=== PATIENT | male | born 1985 | race Caucasian/White ===

== ENCOUNTER 2016-05-25 17:21 | Emergency (ER) | payer OTHER ==
[~2016-05-25] VITALS: Ht 172.7 cm; Wt 123.0 kg
[~2016-05-25 17:21] MED LIST: GABA300C19 PO; NORT75CA PO; ZNT/150 PO
[2016-05-25 17:37] VITALS: BP 156/84; TEMP 37.2; Ht 172.7 cm; Wt 123.0 kg
[2016-05-25] MEDS ORDERED: ALBUT/IPRATROP 3MG/0.5MG NEB 3 ML VIAL INH STA (18:20)
--- NOTE | 2016-05-25 18:55 | DIAGNOSTIC IMAGING REPORT ---
CHEST ONE VIEW PORTABLE CLINICAL HISTORY: cough dyspnea COMPARISON STUDY: No previous studies for comparison. FINDINGS: The bones soft tissues and hemidiaphragms are normal. The cardiomediastinal silhouette is normal. The lungs are clear. The pulmonary vasculature is normal. IMPRESSION: Negative chest. Electronically signed by: Satnam Perez M.D. 05/25/2016 6:54 PM Dictated Date/Time: 05/25/2016 6:54 PM
[2016-05-25] MEDS ORDERED: PRED20TA PO (19:45)
[2016-05-25] MEDS ORDERED: ALBUTEROL HFA 8 GM INHALER INH ONE (19:45)
--- NOTE | 2016-05-25 19:45 | EMERGENCY ROOM VISIT NOTE ---
History Report prepared by Nina: Anjum Lema Under the Supervision of: Dr. Ilia Parra D.O. First contact with patient: 18:17 Chief Complaint: RESPIRATORY PROBLEMS Stated Complaint: TROUBLE BREATHING,FEVER,COLD,COUGH,DIZZY History of Present Illness The patient is a 30 year old male with a history of asthma who presents to the Emergency Room with complaints of a persistent cough beginning two days prior to arrival. He currently rates his discomfort as a 4/10 in severity. The patient associates hot and cold flashes, difficulty breathing, dizziness, nausea , vomiting, and body aches. He notes his cough is productive with clear sputum. The patient states he had two episodes of vomiting prior to arrival. He notes he used an inhaler this morning. 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 A total of 10 systems reviewed and were otherwise negative. Past Medical & Surgical Medical Problems: (1) Arthritis (2) Asthma (3) Chronic back pain (4) fibromyalgia Family History No pertinent family history Social History Smoking Status: Former Smoker Drug Use: none Marital Status: in relationship Housing Status: lives with significant other Occupation Status: employed Current/Historical Medications Scheduled Gabapentin (Neurontin), 300 MG PO TID Nortriptyline Hcl (Pamelor), 75 MG PO DAILY Prednisone (Prednisone), 2 TAB PO DAILY Ranitidine Hcl (Zantac), 150 MG PO BID Allergies Coded Allergies: Penicillins (Verified Allergy, Unknown, 05/25/16) ALLERGY LISTED ANTIBIOTICS Red Dye (Verified Allergy, Unknown, VARIOUS, 05/25/16) Uncoded Allergies: "MOST ANTIBIOTICS" (Allergy, Unknown, NOT SPECIFIED, 11/29/14) ARTIFICIAL RASPBERRY (Allergy, Unknown, NOT SPECIFIED, 11/29/14) Physical Exam Vital Signs Date Time Temp Pulse Resp B/P Pulse Ox O2 Delivery O2 Flow Rate FiO2 05/25/16 18:35 113 05/25/16 18:34 Room Air 05/25/16 17:39 Room Air 05/25/16 17:37 37.2 110 20 156/84 95 Room Air Physical Exam CONSTITUTIONAL/VITAL SIGNS: Reviewed / noted above. GENERAL: Non-toxic in appearance. INTEGUMENTARY: Warm, dry, and [place]. HEAD: Normocephalic. EYES: without scleral icterus or trauma. ENT/OROPHARYNX: clear and moist. LYMPHADENOPATHY/NECK: Is supple without lymphadenopathy or meningismus. RESPIRATORY: Scattered expiratory wheezing. Occasional cough. CARDIOVASCULAR: Regular rate and rhythm. GI/ABDOMEN: Soft and nontender. No organomegaly or pulsatile mass. No rebound or guarding. Normal bowel sounds. EXTREMITIES: Warm and well perfused. BACK: No CVA tenderness. NEUROLOGICAL: Intact without focal deficits. PSYCHIATRIC: normal affect. MUSCULOSKELETAL: Normally developed with good muscle tone. Medical Decision & Procedures ER Provider Diagnostic Interpretation: X ray results and stated below per my interpretation and radiology interpretation. CHEST ONE VIEW PORTABLE CLINICAL HISTORY: cough dyspnea COMPARISON STUDY: No previous studies for comparison. FINDINGS: The bones soft tissues and hemidiaphragms are normal. The cardiomediastinal silhouette is normal. The lungs are clear. The pulmonary vasculature is normal. IMPRESSION: Negative chest. Electronically signed by: Satnam Perez M.D. 05/25/2016 6:54 PM Medications Administered Medications (Trade) Dose Ordered Sig/Moshe Route Start Time Stop Time Status Last Admin Dose Admin Albuterol/ Ipratropium (Duoneb) 3 ml NOW STAT INH 05/25/16 18:20 05/25/16 18:22 DC 05/25/16 18:33 3 ML Prednisone (PredniSONE TAB) 60 mg NOW STAT PO 05/25/16 18:20 05/25/16 18:22 DC 05/25/16 18:33 60 MG ED Course 1817: Previous medical records were reviewed. The patient was evaluated in room B2. A complete history and physical examination was performed. 1819: Ordered Prednisone 60 mg PO, Duoneb 3 ml INH. 1944: Ordered Albuterol 2 puffs INH. 1999: On reevaluation, the patient is doing well. I discussed the results and findings with the patient. He verbalized agreement of the treatment plan. The patient was discharged home. Medical Decision The differential was considered includes acute myocardial infarction, acute coronary syndrome, myocarditis, pericarditis, pericardial effusions /tamponad, esophageal perforation, pulmonary embolism, pneumonia, pneumothorax, cardiomyopathy, congestive heart, anemia , COPD/asthma exacerbation. This is a 30-year-old male who presents to the ED with a chief complaint of a cough for the past 2 days. He is also had some hot and cold symptoms. Today he coughed to the point where he vomited twice. He has a history of asthma. He denies any other significant symptoms. He has been using his inhaler. The patient's exam reveals normal vital signs and he is afebrile. He has expiratory wheezes on exam. DuoNeb treatment improved his symptoms significant only. He was also given prednisone by mouth. The patient was discharged on prednisone. He will use albuterol inhaler was provided. Chest x-ray did not show acute disease. He is felt to be stable for discharge. Impression Primary Impression: Bronchitis Scribe Attestation The scribe's documentation has been prepared under my direction and personally reviewed by me in its entirety. I confirm that the note above accurately reflects all work, treatment, procedures, and medical decision making performed by me. Departure Information Dispostion Home / Self-Care Prescriptions Prednisone (Prednisone) 20 Mg Tab 2 TAB PO DAILY for 4 Days, #8 TAB Prov: Ilia Parra D.O. 05/25/16 Referrals Dhaval Burrows III, CRNP (PCP) Forms HOME CARE DOCUMENTATION FORM, IMPORTANT VISIT INFORMATION, WORK / SCHOOL INSTRUCTIONS Patient Instructions Bronchitis Acute, My [facility] Additional Instructions Follow-up with your doctor for further care and evaluation in 1-2 days. Return to the emergency department for worsening or new symptoms or any concerns. You have been examined and treated today on an emergency basis only. This is not a substitute for, or an effort to provide, complete comprehensive medical care. It is impossible to recognize and treat all injuries or illnesses in a single emergency department visit. It is therefore important that you follow up closely with your doctor. Call as soon as possible for an appointment. Prednisone as prescribed. Albuterol inhaler, 2 puffs every 2-4 hours as needed for wheezing and cough.
[2016-05-25 20:12] VITALS: PULSE 103; O2SAT 93
== END 2016-05-25 20:40 | disposition home or self-care (01) ==
LOC: C.EDB 17:23
DX: J40 Bronchitis, not specified as acute or chronic (principal); J45.909 Unspecified asthma, uncomplicated; G89.29 Other chronic pain; Z87.891 Personal history of nicotine dependence

== ENCOUNTER → 2016-05-30 | Outpatient (CLI) | payer OTHER ==
[~2016-05-30] MED LIST changes: +PRED20TA PO
[2016-05-30 13:55] LABS: BLOOD UREA NITROGEN 17 mg/dl (7-18); BUN/CREATININE RATIO 17.6 (10-20); CARBON DIOXIDE 26 mmol/L (21-32); CHLORIDE 105 mmol/L (98-107); CREATININE 0.96 mg/dl (0.60-1.40); GLUCOSE 95 mg/dl (70-99); POTASSIUM 3.7 mmol/L (3.5-5.1); SODIUM 141 mmol/L (136-145)
[2016-05-30 13:58] LABS: CHOLESTEROL 146 mg/dl (0-200); CHOLESTEROL/HDL RATIO 3.2; HDL CHOLESTEROL 46 mg/dl; LDL CHOLESTEROL CALCULATED 78 mg/dl; TRIGLYCERIDES 112 mg/dl (0-150); VERY LOW DENSITY LIPOPROT CALC 22 mg/dl
== END | disposition home or self-care (01) ==
LOC: C.LAB 12:40
PROVIDERS: ATTEND Family Medicine
DX: E78.1 Pure hyperglyceridemia (principal); M79.7 Fibromyalgia

== ENCOUNTER 2017-06-01 10:38 | Emergency (ER) | payer OTHER ==
[~2017-06-01] VITALS: Ht 172.7 cm; Wt 133.6 kg
[~2017-06-01 10:38] MED LIST changes: +GABA-1218 PO; -GABA300C19 PO; -PRED20TA PO
[2017-06-01 10:49] VITALS: TEMP 37.4; Ht 172.7 cm; Wt 133.6 kg
[2017-06-01] MEDS ORDERED: MoRPHine SULFATE 4 MG/ML 1 ML CARP\\VIAL IV STA (10:59)
[2017-06-01] MEDS ORDERED: SODIUM CHLORIDE 0.9% 1000ML 2,000 ML IV STA (10:59)
[2017-06-01] MEDS ORDERED: ONDANSETRON INJ 2 MG/ML 2 ML VIAL IV STA (10:59)
[2017-06-01] MEDS ORDERED: OPTIRAY 320 IV PRN (11:15)
[2017-06-01 11:25] LABS: BASO % 0.1 %; BASO ABS # 0.02 K/uL (0-0.2); EOS % 0.9 %; EOS ABS # 0.14 K/uL (0-0.5); HEMATOCRIT 45.8 % (42-52); HEMOGLOBIN 16.5 g/dL (14.0-18.0); IG# 0.03 K/uL (0.00-0.02); LYMPH % 4.6 %; LYMPH ABS # 0.69 K/uL (1.2-3.4); MEAN CELL VOLUME 85.3 fL (80-100); MEAN CORPUSCULAR HEMOGLOBIN 30.7 pg (25-34); MEAN PLATELET VOLUME 11.1 fL (7.4-10.4); MONO % 3.1 %; MONO ABS # 0.47 K/uL (0.11-0.59); NEUT % 91.1 %; NEUT ABS # 13.66 K/uL (1.4-6.5); PLATELET COUNT 194 K/uL (130-400); RED CELL DISTRIBUTION WIDTH CV 13.5 % (11.5-14.5); RED CELL DISTRIBUTION WIDTH SD 41.9 fL (36.4-46.3); WHITE BLOOD COUNT 15.01 K/uL (4.8-10.8)
[2017-06-01 11:39] LABS: CALCIUM 9.2 mg/dl (8.5-10.1); CREATININE 1.12 mg/dl (0.60-1.40); POTASSIUM 4.7 mmol/L (3.5-5.1)
[2017-06-01 11:42] LABS: TOTAL PROTEIN 7.7 gm/dl (6.4-8.2)
--- NOTE | 2017-06-01 12:18 | DIAGNOSTIC IMAGING REPORT ---
ABD/PELVIS IV CONTRAST ONLY CLINICAL HISTORY: 31 years-old Male presenting with abd pain, vomiting, weakness, lower abdominal pain. TECHNIQUE: Multidetector CT of the abdomen and pelvis was performed after the administration of intravenous contrast. IV contrast: 93 mL of Optiray 320. A dose lowering technique was used consistent with the principles of ALARA (as low as reasonably achievable). COMPARISON: None. CT DOSE (mGy.cm): The estimated cumulative dose is 1786.17 mGy.cm. 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 Lung bases: Minimal basilar opacities, likely atelectasis. Solid peripheral 4 mm nodule in the right middle lobe (series 3 image 19). Solid peripheral 5 mm nodule in the posterior basal right lower lobe (series 3 image 19). Normal heart size. No pericardial or pleural effusion. Liver: Normal morphology. Suspected hepatic steatosis. No focal lesion. Patent hepatic vasculature. Biliary: No intrahepatic or extrahepatic biliary ductal dilatation. Normal gallbladder. Pancreas: Mild parenchymal atrophy. Spleen: Normal. Adrenal glands: Normal. Kidneys and ureters: Normal. No hydronephrosis. Bladder: Normal. Pelvic organs: Prostate and seminal vesicles normal. Bowel: Normal appendix. No bowel obstruction. Appendicolith noted. Peritoneal cavity: No free fluid or intraperitoneal gas. Lymph nodes: No enlarged lymph nodes in the abdomen or pelvis. Vasculature: Aorta and IVC patent and normal in caliber. Abdominal wall: Normal. Musculoskeletal: Normal. IMPRESSION: 1. No acute intra-abdominal pathology. 2. Suspected hepatic steatosis. Correlate with liver function tests to exclude steatohepatitis as a cause for abdominal pain. 3. 2 solid pulmonary nodules in the right lung, the largest measuring 5 mm. Phillip Society 2017 recommendations do not apply to patients abdomen 35. Follow-up as likely warranted. Electronically signed by: Sedrick Saldaña M.D. 06/01/2017 12:16 PM Dictated Date/Time: 06/01/2017 12:11 PM
[2017-06-01] MEDS ORDERED: ONDA4TAB65 PO (12:25)
[2017-06-01 13:15] VITALS: BP 193/100; PULSE 114; O2SAT 100
--- NOTE | 2017-06-01 16:58 | EMERGENCY ROOM VISIT NOTE ---
History Report prepared by Gemaibsandra: Rena Triana Under the Supervision of: Dr. Valeriy Oconnell D.O. First contact with patient: 10:51 Chief Complaint: ILLNESS Stated Complaint: THROWING UP, WEAK, DIZZY, STOMACH PAIN History of Present Illness The patient is a 31 year old male who presents to the Emergency Room with complaints of constant generalized illness beginning at 6 am this morning. The patient reports vomiting, abdominal cramping, and generalized weakness. He reports the abdominal pain is fairly mild in nature. No exacerbating or remitting factors. No recent travel, drinking from streams, backpacking or hiking. No urinary symptoms. He denies any worsening or modifying factors for his abdominal pain. He denies any recent sick contact. The patient's last bowel movement was this morning which he reports was loose. He denies any history of abdominal surgeries. Pt denies headache, change in vision, fevers, chest pain, shortness of breath, nausea, pain with urination, and melena. Source of History: patient Onset: this morning at 6 am Position: other (generalized) Quality: other (illness) Modifying Factors (Worsening): other (none) Modifying Factors (Relieving): other (none) Associated Symptoms: + vomiting, + abdominal pain, + diarrhea, No chest pain , No SOB, No urinary symptoms Review of Systems See HPI for pertinent positives & negatives. A total of 10 systems reviewed and were otherwise negative. Past Medical & Surgical Medical Problems: (1) Arthritis (2) Asthma (3) Chronic back pain (4) fibromyalgia Family History No pertinent family history Social History Smoking Status: Never Smoker Drug Use: none Marital Status: in relationship Housing Status: lives with significant other Occupation Status: employed Current/Historical Medications Scheduled Gabapentin (Neurontin), 300 MG PO TID Nortriptyline Hcl (Pamelor), 75 MG PO DAILY Ranitidine Hcl (Zantac), 150 MG PO BID Scheduled PRN Ondansetron Hcl (Zofran), 1 TAB PO Q6H PRN for Nausea Allergies Coded Allergies: Penicillins (Verified Allergy, Unknown, 05/25/16) ALLERGY LISTED ANTIBIOTICS Red Dye (Verified Allergy, Unknown, VARIOUS, 05/25/16) Uncoded Allergies: "MOST ANTIBIOTICS" (Allergy, Unknown, NOT SPECIFIED, 11/29/14) ARTIFICIAL RASPBERRY (Allergy, Unknown, NOT SPECIFIED, 11/29/14) Physical Exam Vital Signs Date Time Temp Pulse Resp B/P (MAP) Pulse Ox O2 Delivery O2 Flow Rate FiO2 06/01/17 13:15 114 16 193/100 100 06/01/17 12:19 108 16 169/96 96 Room Air 06/01/17 10:49 37.4 113 20 155/97 97 Room Air Physical Exam GENERAL: Sitting up in bed, alert, disheveled appearing, well nourished, no distress, non-toxic EYE EXAM: normal conjunctiva. OROPHARYNX: no exudate, no erythema, lips, buccal mucosa, and tongue normal and mucous membranes are dry. NECK: supple, no nuchal rigidity, no adenopathy, non-tender LUNGS: Clear to auscultation. Normal chest wall mechanics HEART: no murmurs, S1 normal and S2 normal ABDOMEN: abdomen soft, non-tender, normo-active bowel sounds, no masses, no rebound or guarding. BACK: Back is symmetrical on inspection and there is no deformity, no midline tenderness, no CVA tenderness. SKIN: no rashes and no bruising UPPER EXTREMITIES: upper extremities are grossly normal. LOWER EXTREMITIES: No pitting edema. NEURO EXAM: Normal sensorium, cranial nerves II-XII grossly intact, normal speech, no gross weakness of arms, no gross weakness of legs. 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 Lung bases: Minimal basilar opacities, likely atelectasis. Solid peripheral 4 mm nodule in the right middle lobe (series 3 image 19). Solid peripheral 5 mm nodule in the posterior basal right lower lobe (series 3 image 19). Normal heart size. No pericardial or pleural effusion. Liver: Normal morphology. Suspected hepatic steatosis. No focal lesion. Patent hepatic vasculature. Biliary: No intrahepatic or extrahepatic biliary ductal dilatation. Normal gallbladder. Pancreas: Mild parenchymal atrophy. Spleen: Normal. Adrenal glands: Normal. Kidneys and ureters: Normal. No hydronephrosis. Bladder: Normal. Pelvic organs: Prostate and seminal vesicles normal. Bowel: Normal appendix. No bowel obstruction. Appendicolith noted. Peritoneal cavity: No free fluid or intraperitoneal gas. Lymph nodes: No enlarged lymph nodes in the abdomen or pelvis. Vasculature: Aorta and IVC patent and normal in caliber. Abdominal wall: Normal. Musculoskeletal: Normal. IMPRESSION: 1. No acute intra-abdominal pathology. 2. Suspected hepatic steatosis. Correlate with liver function tests to exclude steatohepatitis as a cause for abdominal pain. 3. 2 solid pulmonary nodules in the right lung, the largest measuring 5 mm. Phillip Society 2017 recommendations do not apply to patients abdomen 35. Follow-up as likely warranted. Electronically signed by: Sedrick Saldaña M.D. Laboratory Results 06/01/17 11:10 Red Blood Count 5.37, Mean Corpuscular Volume 85.3, Mean Corpuscular Hemoglobin 30.7, Mean Corpuscular Hemoglobin Concent 36.0, Mean Platelet Volume 11.1, Neutrophils (%) (Auto) 91.1, Lymphocytes (%) (Auto) 4.6, Monocytes (%) (Auto) 3.1, Eosinophils (%) (Auto) 0.9, Basophils (%) (Auto) 0.1, Neutrophils # (Auto) 13.66, Lymphocytes # (Auto) 0.69, Monocytes # (Auto) 0.47, Eosinophils # (Auto) 0.14, Basophils # (Auto) 0.02 06/01/17 11:10 Test 06/01/17 11:10 White Blood Count 15.01 K/uL (4.8-10.8) Red Blood Count 5.37 M/uL (4.7-6.1) Hemoglobin 16.5 g/dL (14.0-18.0) Hematocrit 45.8 % (42-52) Mean Corpuscular Volume 85.3 fL (80-100) Mean Corpuscular Hemoglobin 30.7 pg (25-34) Mean Corpuscular Hemoglobin Concent 36.0 g/dl (32-36) Platelet Count 194 K/uL (130-400) Mean Platelet Volume 11.1 fL (7.4-10.4) Neutrophils (%) (Auto) 91.1 % Lymphocytes (%) (Auto) 4.6 % Monocytes (%) (Auto) 3.1 % Eosinophils (%) (Auto) 0.9 % Basophils (%) (Auto) 0.1 % Neutrophils # (Auto) 13.66 K/uL (1.4-6.5) Lymphocytes # (Auto) 0.69 K/uL (1.2-3.4) Monocytes # (Auto) 0.47 K/uL (0.11-0.59) Eosinophils # (Auto) 0.14 K/uL (0-0.5) Basophils # (Auto) 0.02 K/uL (0-0.2) RDW Standard Deviation 41.9 fL (36.4-46.3) RDW Coefficient of Variation 13.5 % (11.5-14.5) Immature Granulocyte % (Auto) 0.2 % Immature Granulocyte # (Auto) 0.03 K/uL (0.00-0.02) Anion Gap 8.0 mmol/L (3-11) Est Creatinine Clear Calc Drug Dose 125.3 ml/min Estimated GFR () 99.5 Estimated GFR (Non- 85.8 BUN/Creatinine Ratio 16.9 (10-20) Calcium Level 9.2 mg/dl (8.5-10.1) Total Bilirubin 0.9 mg/dl (0.2-1) Direct Bilirubin 0.2 mg/dl (0-0.2) Aspartate Amino Transf (AST/SGOT) 30 U/L (15-37) Alanine Aminotransferase (ALT/SGPT) 68 U/L (12-78) Alkaline Phosphatase 99 U/L (45-117) Total Protein 7.7 gm/dl (6.4-8.2) Albumin 4.0 gm/dl (3.4-5.0) Lipase 91 U/L (73-393) Laboratory results per my review. Medications Administered Medications (Trade) Dose Ordered Sig/Moshe Route Start Time Stop Time Status Last Admin Dose Admin Sodium Chloride 2,000 ml @ 999 mls/hr Q2H1M STAT IV 06/01/17 10:59 06/01/17 12:59 DC 06/01/17 11:11 999 MLS/HR Ondansetron HCl (Zofran Inj) 4 mg NOW STAT IV 06/01/17 10:59 06/01/17 11:01 DC 06/01/17 11:11 4 MG Morphine Sulfate (MoRPHine SULFATE INJ) 4 mg NOW STAT IV 06/01/17 10:59 06/01/17 11:01 DC 06/01/17 11:10 4 MG ED Course ED COURSE: Vital signs were reviewed and showed tachycardic and hypertensive. The patients medical record was reviewed The above diagnostic studies were performed and reviewed. ED treatments and interventions as stated above. 1056: The patient was evaluated in room C1B. A complete history and physical examination was performed. 1059: Ordered Morphine Sulfate 4 mg IV, Zofran Inj 4 mg IV, Sodium Chloride 2000 ml @ 999 mls/hr IV. 1247: On reassessment, the patient is feeling better. I updated him on his test results. He has had no episodes of vomiting and he would like to go home. 1303: Upon reevaluation, the patient is resting comfortably.I discussed my findings with the patient and he understands and agrees with the treatment plan. Based on the patients age, coexisting illnesses, exam and lab findings the decision to treat as an outpatient was made. The patient remained stable while under my care. The patient appeared well at the time of discharge. Medical Decision Differential diagnoses includes but is not limited to gastritis, peptic ulcer disease, GERD, gallbladder disease, pancreatitis, small bowel obstruction, acute coronary syndrome, pericarditis, ischemic bowel, irritable bowel disease, irritable bowel syndrome, appendicitis, diverticulitis, malignancy, hernia, urinary tract infection, torsion, perforation, trauma, infectious. Patient is a 31-year-old male who presents to ER for vomiting which started around 6 AM associated with 3-4 watery stools. He does admit to a crampy abdominal pain. Labs are remarkable for mild leukocytosis of 15,000. BMP along with LFTs, bilirubin lipase is unremarkable. CT of abdomen pelvis was benign. Unable to obtain UA. Patient was given 2 L normal saline and Zofran. He was able to tolerate sips of hoa riley. He was feeling better. He was discharged but just prior to discharge he became slightly lightheaded. He rested in bed and left shortly thereafter. He had complete benign abdominal exam. I do favor this is related to a gastroenteritis. Patient does have [address] nodules seen on CT. Updated family in regards to these the patient will have these followed up within the month. Discussed with Pt concerning signs and symptoms to watch out for. Pt was instructed to follow up with their PCP and discussed with the patient their option to return to the ED at anytime for persistent or worsening symptoms. The appropriate anticipatory guidance and out-patient management, including indications for return to the emergency department, were explained at length to the patient and understood. Medication Reconcilliation Current Medication List: was personally reviewed by me Blood Pressure Screening Patient's blood pressure: Elevated blood pressure Blood pressure disposition: Elevated BP felt to be situational Impression Primary Impression: Abdominal pain Additional Impressions: Vomiting Pulmonary nodules Scribe Attestation The scribe's documentation has been prepared under my direction and personally reviewed by me in its entirety. I confirm that the note above accurately reflects all work, treatment, procedures, and medical decision making performed by me. Departure Information Dispostion Home / Self-Care Prescriptions Ondansetron Hcl (ZOFRAN) 4 Mg Tab 1 TAB PO Q6H Y for Nausea, #10 TAB 0 Refills Prov: Valeriy Oconnell, DO 06/01/17 Referrals Dhaval Burrows III, CRNP (PCP) Forms HOME CARE DOCUMENTATION FORM, IMPORTANT VISIT INFORMATION, WORK / SCHOOL INSTRUCTIONS Patient Instructions Abdominal Pain - [facility], My [facility] Additional Instructions Please follow up with your primary care doctor or if you are a student, [facility] with in the next 24 hours. Any worsening of your symptoms, please return to the ED immediately. This includes any fevers greater than 100.4, worsening pain, chest pain, shortness breath, persistent nausea, vomiting, unable to eat or drink, or any other concerning signs or symptoms from your standpoint. You were given medications during this visit that will inhibit your ability to drive, operate machinery and work. Please do NOT drive, operate machinery, drink alcohol or work for the next 12hrs. You were found to have 2 pulmonary nodules. Please have this followed up on by your primary care doctor within the next week. Please take Zofran as needed for nausea and vomiting. Problem Qualifiers Primary Impression: Abdominal pain Abdominal location: unspecified location Qualified Codes: R10.9 - Unspecified abdominal pain Additional Impressions: Vomiting Vomiting type: unspecified Vomiting Intractability: unspecified Nausea presence: with nausea Qualified Codes: R11.2 - Nausea with vomiting, unspecified
== END 2017-06-01 13:15 | disposition home or self-care (01) ==
LOC: C.EDB 10:39 → C.EDC 13:15
DX: R10.9 Unspecified abdominal pain (principal); R11.10 Vomiting, unspecified; R91.8 Other nonspecific abnormal finding of lung field; D72.829 Elevated white blood cell count, unspecified; R03.0 Elevated blood-pressure reading, without diagnosis of hypertension; J45.909 Unspecified asthma, uncomplicated; M19.90 Unspecified osteoarthritis, unspecified site; M54.9 Dorsalgia, unspecified; G89.29 Other chronic pain; Z91.048 Other nonmedicinal substance allergy status; Z88.0 Allergy status to penicillin; Z91.018 Allergy to other foods; Z88.1 Allergy status to other antibiotic agents

== ENCOUNTER 2017-06-01 14:05 | Emergency (ER) | payer OTHER ==
[~2017-06-01] VITALS: Ht 172.7 cm; Wt 134.0 kg
[~2017-06-01 14:05] MED LIST changes: +ONDA4TAB65 PO
[2017-06-01 14:28] VITALS: TEMP 36.8; Ht 172.7 cm; Wt 134.0 kg
[2017-06-01] MEDS ORDERED: SODIUM CHLORIDE 0.9% 1000ML 2,000 ML IV STA (14:39)
[2017-06-01] MEDS ORDERED: ONDANSETRON INJ 2 MG/ML 2 ML VIAL IV STA (14:41)
[2017-06-01] MEDS ORDERED: METOCLOPRAMIDE HCL INJ 5 MG/ML 2 ML VIAL IV STA (14:41)
--- NOTE | 2017-06-01 15:03 | DIAGNOSTIC IMAGING REPORT ---
CHEST ONE VIEW PORTABLE CLINICAL HISTORY: 31 years-old Male presenting with near syncope. TECHNIQUE: Portable upright AP view of the chest was obtained. COMPARISON: 05/25/2016. FINDINGS: Cardiomediastinal silhouette normal. Lungs and pleural spaces clear. Osseous structures normal. Upper abdomen normal. IMPRESSION: 1. No acute cardiopulmonary disease. Electronically signed by: Sedrick Saldaña M.D. 06/01/2017 3:02 PM Dictated Date/Time: 06/01/2017 3:01 PM
[2017-06-01 15:05] LABS: BASO % 0.2 %; BASO ABS # 0.03 K/uL (0-0.2); EOS % 0.5 %; EOS ABS # 0.06 K/uL (0-0.5); HEMATOCRIT 45.5 % (42-52); HEMOGLOBIN 15.8 g/dL (14.0-18.0); IG# 0.04 K/uL (0.00-0.02); LYMPH % 5.1 %; LYMPH ABS # 0.64 K/uL (1.2-3.4); MEAN CELL VOLUME 85.7 fL (80-100); MEAN CORPUSCULAR HEMOGLOBIN 29.8 pg (25-34); MEAN CORPUSCULAR HGB CONC 34.7 g/dl (32-36); MEAN PLATELET VOLUME 11.4 fL (7.4-10.4); MONO % 3.9 %; MONO ABS # 0.49 K/uL (0.11-0.59); NEUT ABS # 11.22 K/uL (1.4-6.5); PLATELET COUNT 189 K/uL (130-400); RED CELL DISTRIBUTION WIDTH CV 13.6 % (11.5-14.5); RED CELL DISTRIBUTION WIDTH SD 42.5 fL (36.4-46.3); WHITE BLOOD COUNT 12.48 K/uL (4.8-10.8)
[2017-06-01 15:27] LABS: ALBUMIN 3.7 gm/dl (3.4-5.0); CALCIUM 8.4 mg/dl (8.5-10.1); CREATININE 1.19 mg/dl (0.60-1.40); POTASSIUM 4.3 mmol/L (3.5-5.1)
[2017-06-01] MEDS ORDERED: ONDANSETRON HOME PACK 4MG OD TAB PO ONE (17:30)
[2017-06-01 17:31] VITALS: BP 126/75; PULSE 121; O2SAT 98
--- NOTE | 2017-06-01 18:26 | EMERGENCY ROOM VISIT NOTE ---
History Report prepared by Gemaibsandra: Rena Triana Under the Supervision of: Dr. Valeriy Oconnell D.O. First contact with patient: 14:32 Chief Complaint: VOMITING Stated Complaint: VOMITTING, DIARRHEA, DIZZY Nursing Triage Summary: patient states he was in the ER earlier this AM. patient states he has had nausea vomiting and some diarrhea since 0600. patient states "i just feel aweful." History of Present Illness The patient is a 31 year old male who presents to the Emergency Room with complaints of generalized illness beginning at 6 am this morning. The patient notes nausea, vomiting, diarrhea, and generalized weakness. He also reports shortness of breath when he vomits beginning an hour ago. The patient was seen in the ED earlier this morning for the same symptoms. The patient reports eating food at [facility] at 1 am this morning. He denies any recent travel, backpacking or hiking. He denies eating anything since. He states he drank a Sprite after leaving the ED this afternoon and vomiting it up. Lightheadedness/ dizziness is present with changing positions. He does feel slightly lightheaded and dizzy and is where he presented to the ER. Pt denies headache, change in vision, fevers, chest pain, pain with urination, and melena. Source of History: patient Onset: 6 am Position: other (generalized) Quality: other (illness) Timing: constant Associated Symptoms: + SOB, + nausea, + vomiting, + diarrhea, + weakness, No chest pain, No urinary symptoms Review of Systems See HPI for pertinent positives & negatives. A total of 10 systems reviewed and were otherwise negative. Past Medical & Surgical Medical Problems: (1) Arthritis (2) Asthma (3) Chronic back pain (4) fibromyalgia Family History No pertinent family history Social History Smoking Status: Never Smoker Drug Use: none Marital Status: in relationship Housing Status: lives with significant other Occupation Status: employed Current/Historical Medications Scheduled Gabapentin (Neurontin), 300 MG PO TID Nortriptyline Hcl (Pamelor), 75 MG PO DAILY Ranitidine Hcl (Zantac), 150 MG PO BID Scheduled PRN Ondansetron Hcl (Zofran), 1 TAB PO Q6H PRN for Nausea Allergies Coded Allergies: Penicillins (Verified Allergy, Unknown, 05/25/16) ALLERGY LISTED ANTIBIOTICS Red Dye (Verified Allergy, Unknown, VARIOUS, 05/25/16) Uncoded Allergies: "MOST ANTIBIOTICS" (Allergy, Unknown, NOT SPECIFIED, 11/29/14) ARTIFICIAL RASPBERRY (Allergy, Unknown, NOT SPECIFIED, 11/29/14) Physical Exam Vital Signs Date Time Temp Pulse Resp B/P (MAP) Pulse Ox O2 Delivery O2 Flow Rate FiO2 06/01/17 17:31 121 19 126/75 98 06/01/17 16:21 111 20 120/96 96 Room Air 06/01/17 14:28 36.8 118 18 131/84 99 Room Air Physical Exam GENERAL: Sitting up in bed, alert, soft spoken, no distress, non-toxic EYE EXAM: normal conjunctiva. PERRL and EOM's intact. OROPHARYNX: no exudate, no erythema, lips, buccal mucosa, and tongue normal and mucous membranes are moist NECK: supple, no nuchal rigidity, no adenopathy, non-tender LUNGS: Clear to auscultation. Normal chest wall mechanics HEART: no murmurs, S1 normal and S2 normal ABDOMEN: abdomen soft, non-tender, normo-active bowel sounds, no masses, no rebound or guarding. BACK: Back is symmetrical on inspection and there is no deformity, no midline tenderness, no CVA tenderness. SKIN: no rashes and no bruising UPPER EXTREMITIES: upper extremities are grossly normal. LOWER EXTREMITIES: No pitting edema. NEURO EXAM: Normal sensorium, cranial nerves II-XII intact, normal speech, no weakness of arms, no weakness of legs. No drift. Finger to nose intact. Gross sensation intact. Medical Decision & Procedures ER Provider Diagnostic Interpretation: Radiology results as stated below per my review and the radiologist's interpretation: CHEST ONE VIEW PORTABLE FINDINGS: Cardiomediastinal silhouette normal. Lungs and pleural spaces clear. Osseous structures normal. Upper abdomen normal. IMPRESSION: 1. No acute cardiopulmonary disease. Electronically signed by: Sedrick Saldaña M.D. Laboratory Results 06/01/17 14:57 Red Blood Count 5.31, Mean Corpuscular Volume 85.7, Mean Corpuscular Hemoglobin 29.8, Mean Corpuscular Hemoglobin Concent 34.7, Mean Platelet Volume 11.4, Neutrophils (%) (Auto) 90.0, Lymphocytes (%) (Auto) 5.1, Monocytes (%) (Auto) 3.9, Eosinophils (%) (Auto) 0.5, Basophils (%) (Auto) 0.2, Neutrophils # (Auto) 11.22, Lymphocytes # (Auto) 0.64, Monocytes # (Auto) 0.49, Eosinophils # (Auto) 0.06, Basophils # (Auto) 0.03 06/01/17 14:57 Test 06/01/17 14:57 06/01/17 16:05 White Blood Count 12.48 K/uL (4.8-10.8) Red Blood Count 5.31 M/uL (4.7-6.1) Hemoglobin 15.8 g/dL (14.0-18.0) Hematocrit 45.5 % (42-52) Mean Corpuscular Volume 85.7 fL (80-100) Mean Corpuscular Hemoglobin 29.8 pg (25-34) Mean Corpuscular Hemoglobin Concent 34.7 g/dl (32-36) Platelet Count 189 K/uL (130-400) Mean Platelet Volume 11.4 fL (7.4-10.4) Neutrophils (%) (Auto) 90.0 % Lymphocytes (%) (Auto) 5.1 % Monocytes (%) (Auto) 3.9 % Eosinophils (%) (Auto) 0.5 % Basophils (%) (Auto) 0.2 % Neutrophils # (Auto) 11.22 K/uL (1.4-6.5) Lymphocytes # (Auto) 0.64 K/uL (1.2-3.4) Monocytes # (Auto) 0.49 K/uL (0.11-0.59) Eosinophils # (Auto) 0.06 K/uL (0-0.5) Basophils # (Auto) 0.03 K/uL (0-0.2) RDW Standard Deviation 42.5 fL (36.4-46.3) RDW Coefficient of Variation 13.6 % (11.5-14.5) Immature Granulocyte % (Auto) 0.3 % Immature Granulocyte # (Auto) 0.04 K/uL (0.00-0.02) Anion Gap 7.0 mmol/L (3-11) Est Creatinine Clear Calc Drug Dose 118.2 ml/min Estimated GFR () 92.5 Estimated GFR (Non- 79.8 BUN/Creatinine Ratio 15.5 (10-20) Lactic Acid Level 1.9 mmol/L (0.4-2.0) Calcium Level 8.4 mg/dl (8.5-10.1) Total Bilirubin 0.9 mg/dl (0.2-1) Direct Bilirubin 0.2 mg/dl (0-0.2) Aspartate Amino Transf (AST/SGOT) 28 U/L (15-37) Alanine Aminotransferase (ALT/SGPT) 64 U/L (12-78) Alkaline Phosphatase 91 U/L (45-117) Total Protein 7.0 gm/dl (6.4-8.2) Albumin 3.7 gm/dl (3.4-5.0) Lipase 74 U/L (73-393) Urine Color YELLOW Urine Appearance CLEAR (CLEAR) Urine pH 5.5 (4.5-7.5) Urine Specific [place] 1.043 (1.000-1.030) Urine Protein NEG (NEG) Urine Glucose (UA) NEG (NEG) Urine Ketones NEG (NEG) Urine Occult Blood NEG (NEG) Urine Nitrite NEG (NEG) Urine Bilirubin NEG (NEG) Urine Urobilinogen NEG (NEG) Urine Leukocyte Esterase NEG (NEG) Urine WBC (Auto) 1-5 /hpf (0-5) Urine RBC (Auto) 0-4 /hpf (0-4) Urine Hyaline Casts (Auto) 0 /lpf (0-5) Urine Epithelial Cells (Auto) >30 /lpf (0-5) Urine Bacteria (Auto) NEG (NEG) Laboratory results per my review. Medications Administered Medications (Trade) Dose Ordered Sig/Moshe Route Start Time Stop Time Status Last Admin Dose Admin Sodium Chloride 2,000 ml @ 999 mls/hr Q2H1M STAT IV 06/01/17 14:39 06/01/17 16:39 DC 06/01/17 15:00 999 MLS/HR Metoclopramide HCl (Reglan Inj) 5 mg NOW STAT IV 06/01/17 14:41 06/01/17 14:42 DC 06/01/17 15:00 5 MG Ondansetron HCl (Zofran Inj) 4 mg NOW STAT IV 06/01/17 14:41 06/01/17 14:42 DC 06/01/17 15:00 4 MG Ondansetron HCl (ZOFRAN ODT 4MG Home Pack) 1 homepack UD ONCE PO 06/01/17 17:30 06/01/17 17:31 DC 06/01/17 17:31 1 HOMEPACK ECG Per My Interpretation Indication: weakness Rate (beats per minute): 116 Rhythm: sinus tachycardia Findings: other (poor baseline in inferior, normal axis) Change: Repeat EKG: sinus tachycardia 117 bpm, normal axis, no ectopy. ED Course ED COURSE: Vital signs were reviewed and showed tachycardic The patients medical record was reviewed The above diagnostic studies were performed and reviewed. ED treatments and interventions as stated above. 1435: The patient was evaluated in room B12B. A complete history and physical examination was performed. 1439: Ordered Sodium Chloride 2000 ml @ 999 mls/hr IV. 1441: Ordered Zofran Inj 4 mg IV, Reglan Inj 5 mg IV. 1616: The patient feels back to his baseline. 1730: Ordered Ondansetron HCl 1 homepack PO. 1735: Upon reevaluation, the patient is resting comfortably.I discussed my findings with the patient and he understands and agrees with the treatment plan. Based on the patients age, coexisting illnesses, exam and lab findings the decision to treat as an outpatient was made. The patient remained stable while under my care. The patient appeared well at the time of discharge. Medical Decision Differenital diagnosis includes etiologies such as benign positional vertigo, dehydration, hypovolemia, anemia, tumor, infection, hypoglycemia, electrolyte abnormalities, cardiac sources, intracerebral event, toxicologic, neurologic, as well as others were entertained. Patient is a 31-year-old male who presents the ER for dizziness and lightheadedness. He was seen here earlier for nausea vomiting diarrhea. Labs IV were obtained. CBC along with BMP, LFTs, bilirubin lipase is normal. Lactic acid was negative. He was given additional 2 L normal saline and Reglan. Had complete resolution of his nausea. He did feel significantly better. EKG was unremarkable. He denied any chest pain. He admits that the dizziness/lightheadedness is mostly positional. Chest x-ray was unremarkable. Patient was feeling significantly better he was discharged follow-up with PCP as an outpatient. I do favor this is all secondary to dehydration from his nausea vomiting diarrhea. Discussed with Pt concerning signs and symptoms to watch out for. Pt was instructed to follow up with their PCP and discussed with the patient their option to return to the ED at anytime for persistent or worsening symptoms. The appropriate anticipatory guidance and out-patient management, including indications for return to the emergency department, were explained at length to the patient and understood. Medication Reconcilliation Current Medication List: was personally reviewed by me Blood Pressure Screening Patient's blood pressure: Normal blood pressure Impression Primary Impression: Nausea, vomiting, and diarrhea Scribe Attestation The scribe's documentation has been prepared under my direction and personally reviewed by me in its entirety. I confirm that the note above accurately reflects all work, treatment, procedures, and medical decision making performed by me. Departure Information Dispostion Home / Self-Care Referrals Dhaval Burrows III, CRNP (PCP) Forms HOME CARE DOCUMENTATION FORM, IMPORTANT VISIT INFORMATION Patient Instructions ED Nausea Vomiting, My [facility] Additional Instructions Please follow up with your primary care doctor with in the next 24 hours. Any worsening of your symptoms, please return to the ED immediately. This includes any fevers greater than 100.4, worsening pain, chest pain, shortness breath, persistent nausea, vomiting, unable to eat or drink, or any other concerning signs or symptoms from your standpoint. Again please have the pulmonary nodules followed up by her primary care doctor as discussed previously. Please take Zofran as needed for nausea.
== END 2017-06-01 17:32 | disposition home or self-care (01) ==
LOC: C.EDB 14:06
DX: R11.2 Nausea with vomiting, unspecified (principal); R19.7 Diarrhea, unspecified; R42 Dizziness and giddiness; J45.909 Unspecified asthma, uncomplicated; Z88.0 Allergy status to penicillin; Z91.048 Other nonmedicinal substance allergy status; Z88.1 Allergy status to other antibiotic agents; Z91.018 Allergy to other foods

== ENCOUNTER → 2017-06-17 | Outpatient (CLI) | payer OTHER ==
--- NOTE | 2017-06-17 09:06 | DIAGNOSTIC IMAGING REPORT ---
(CHEST) THORAX WITHOUT CT DOSE: 1036.78 mGy.cm HISTORY: Follow-up PULMONARY NODULE TECHNIQUE: Multiaxial CT images of the chest were performed without contrast. A dose lowering technique was utilized adhering to the principles of ALARA. COMPARISON: Abdomen and pelvis CT 06/01/2017. FINDINGS: No pneumothorax. No pleural effusions. The central airways are patent. A 3 mm subpleural nodule within the left lower lobe on image 203. Stable 5 mm nodule within the right middle lobe on image 180. Stable 5 mm nodule within the right lower lobe on image 149. No focal lung consolidations to suggest pneumonia. Hepatic steatosis. The visualized unenhanced spleen and adrenal glands are unremarkable. Normal caliber thoracic aorta. The heart is normal in size. No mediastinal or hilar lymphadenopathy. Bilateral axillary lymph nodes are subcentimeter in short axis diameter. No fractures within the visualized osseous structures. IMPRESSION: A total of 3 subcentimeter indeterminate pulmonary nodules with the largest measuring 5 mm as described above. Six-month chest CT follow up is recommended to ensure stability. Electronically signed by: Devan Mcpherson M.D. 06/17/2017 9:04 AM Dictated Date/Time: 06/17/2017 8:57 AM
== END | disposition home or self-care (01) ==
LOC: C.CTS 08:42
PROVIDERS: ATTEND Family Medicine
DX: R91.1 Solitary pulmonary nodule (principal); R91.8 Other nonspecific abnormal finding of lung field

== ENCOUNTER 2021-09-03 13:27 | Observation (INO) ==
[2021-09-03] MEDS ORDERED: CLINDAMYCIN/D5W 900 MG/50 ML BAG IV ONE (13:55)
[2021-09-03] MEDS ORDERED: SODIUM CHLORIDE 0.9% 1000ML 1,000 ML IV SCH ×3 (13:56→17:00)
--- NOTE | 2021-09-03 14:01 | Emergency Department Note ---
Impression & Plan Facial cellulitis, Mandibular pain, Dental abscess ED Provider Note CHIEF COMPLAINT: Left lower jaw pain x2 days with facial swelling x1 day HISTORY OF PRESENT ILLNESS: Patient is a 36-year-old male with extensive past medical history including obesity, dyslipidemia, asthma, anxiety, fibromyalgia, type 2 diabetes, who presents the emergency department for evaluation of left lower jaw pain. Symptoms started with pain in the teeth and the left lower jaw on Friday, 2 days ago. The pain then began to radiate toward the neck and toward his head. They noticed some swelling in the left cheek today. He has been alternating Tylenol and ibuprofen for his symptoms. At rest, his pain is a 4/10, but if he tries to talk, the pain goes to a 9/10. No issues with teeth in this area that he is aware of, specifically fillings or cavities. There has been no drainage or discharge from the area, no foul tasting fluid in the mouth. He has been able to eat, mostly soft/liquid foods, it does hurt to chew. He has not contacted dentistry. He did call his primary care provider and they were u nable to get him in so referred him to the emergency department. REVIEW OF SYSTEMS: Review of systems as per HPI. All other systems reviewed were negative. 10 systems reviewed. PMH: Electronic medical records are reviewed and summarized as above/below. See Problem List. SOCIAL HISTORY: Patient lives at home. Non-smoker. PHYSICAL EXAM: Vital Signs: Reviewed Nurse's notes. CONSTITUTIONAL: Patient is a well-appearing obese 36-year-old male who is awake and alert and seated on the gurney. He will not speak, is texting and his female friend is answering questions for him. He briefly does answer a few questions and speaks in a clear although soft voice. He is afebrile. He is managing his own secretions. Vital signs are stable. EARS: Chronic discharge and narrowing of the external canals noted. No obvious tympanic membranes effusion. MOUTH: Overall the patient has good dentition. The teeth of the left lower jawline are tender to percussion, but not overtly carious. No significant gumline swelling or erythema noted. No focal abscess along the gumline. Mucous membranes moist, no lesions, tongue and gums appear normal. THROAT: Posterior pharynx is patent, uvula is midline. No tonsillar erythema or swelling. No trismus. Airway is patent. FACE: The patient has some swelling, fullness and tenderness to palpation along the left lower jawline, some fullness of the face is noted, but no erythema, increased warmth or induration consistent with facial cellulitis. NECK: No lymphadenopathy. ED course: The patient was seen and assessed as above. Old records were reviewed. He presents the emergency department for evaluation of left-sided jaw pain and facial swelling, appears to be dental in etiology. IV lock was initiated. CBC and BMP were collected. The patient has several antibiotic allergies, but was given 900 mg of clindamycin IV without difficulty. CT scan of the face with IV contrast was obtained. Laboratory studies note an elevated white count at 15,400. Left shift and bandemia noted. Electrolytes are within normal limits. CT scan of the face with IV contrast is concerning for extensive cellulitis of the left hemimandible, involving the left masseter and left platysma. There are periapical lucencies of the left first and second molar with a tiny adjacent abscess. Consultation was placed with Dr. Norman with OMFS, and CT scan findings were reviewed with him in addition to patient physical exam findings. Options were discussed, and given his appearance I do think that he would benefit from inpatient stay, IV antibiotics and OMFS evaluation. Dr. Norman feels that this is reasonable. He will review the patient's CT scan tonight, and plan to consult on the patient tomorrow morning as he has a case early here on 09/04. Laboratory studies, CT scan findings and discussion with Dr. Norman were reviewed with the patient and his female friend. The patient is agreeable to admission for further care and IV antibiotics in the hospital. IV hydration was ordered in the form of normal saline solution. He was ordered morphine 6 mg IV and Zofran 4 mg IV for pain. He is aware that he will likely be n.p.o. after midnight today for possible surgical intervention tomorrow, 09/04. Consultation was placed with the [facility]ist Service for inpatient care. Patient was reviewed with Dr. Parker. Covid test was ordered for admitting purposes. Differential includes dental abscess, facial cellulitis vs abscess, Shaquille's angina, peritonsillar/retropharyngeal abscess, among others. Past Med/Surg History Medical History (Updated 06/27/22 @ 17:00 by Harsh Aquino) Anxiety Asthma (04/10/12) Chronic back pain (04/10/12) Chronic fungal otitis externa Essential hypertriglyceridemia Fibromyalgia Gastro-esophageal reflux disease without esophagitis Hematuria Pulmonary nodules Surgical History H/O foot surgery H/O tooth extraction Family History Unknown Diabetes Sister Type 2 diabetes mellitus Mother Type 2 diabetes mellitus Hypertension Hyperlipidemia Mother Type 2 diabetes mellitus Hyperlipidemia Hypertension Grandmother Type 2 diabetes mellitus Denies family history of Ovarian cancer Prostate cancer Myocardial infarction Breast cancer Colorectal cancer Social History Smoking Status: Never smoker Age Started Using Tobacco: 12; Age Quit Using Tobacco: 17; packs per day: 1; Years Smoked: 5; Cigarettes Per Day: 20; Second Hand Exposure: No; Hx Alcohol Use: No Hx Substance Use: No Preferred Language: Frisian Communication Ability: Effective Visual Impairment: No Limitations Hearing Ability: Normal 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 marital status: Single Current Living Situation: Family current occupational status: employed current occupation: [employer] @ [employer] Feels Safe at Home: Yes Childhood Exposure to Second-Hand Smoke: Yes Diet Comment: keto caffeine: Yes during the past year weight has: decreased > 10 lbs Dental Care, Regularly: No Physical Activity Frequency: 5-6 Times per Week Seatbelt Use: always Sunscreen Use: No Assistive Devices: Glasses Allergies Allergies Allergy/AdvReac Type Severity Reaction Status Date / Time cefaclor [From Ceclor] Allergy Unknown Unknown Verified 08/16/21 09:44 Penicillins Allergy Unknown Unknown Verified 08/16/21 09:44 red dye Allergy Unknown VARIOUS Verified 08/16/21 09:44 Sulfa (Sulfonamide Allergy Unknown Unknown Verified 08/16/21 09:44 Antibiotics) "MOST ANTIBIOTICS" Allergy Unknown NOT Uncoded 08/16/21 09:44 SPECIFIED ARTIFICIAL RASPBERRY Allergy Unknown NOT Uncoded 08/16/21 09:44 SPECIFIED Home Meds Previous Rx's Medication Instructions Recorded gabapentin 300 mg capsule 300 mg PO TID #270 cap 10/10/20 metformin 500 mg tablet 500 mg PO BID #180 tab 10/10/20 nortriptyline 75 mg capsule 75 mg PO DAILY #90 cap 10/10/20 omeprazole 40 mg capsule,delayed 40 mg PO DAILY #90 cap 10/10/20 release hydrocortisone-acetic acid 1 %-2 % See Rx Instructions .ROUTE 03/01/21 ear drops .COMPLEX #10 ml celecoxib 100 mg capsule See Rx Instructions .ROUTE 06/29/21 .COMPLEX #60 cap Results & Data (ED) Vital Signs Vital Signs - 24 hr 09/03/21 13:32 Temperature 36.4 C L Temperature Source Temporal Artery Scan Pulse Rate 80 Respiratory Rate 18 Blood Pressure 141/89 H Blood Pressure Mean 106 Pulse Oximetry 97 Oxygen Delivery Method Room Air Sepsis Recent Fever Within 48 Hours No Sepsis New/Unexplained Change in Mental Status No Sepsis Action Taken by Nursing No Action Required Home Medications Current Medication List: was personally reviewed by me Laboratory Data Attestation: I reviewed the patient's lab results. Result diagrams: 09/03/21 14:15 09/03/21 14:15 Lab Results 09/03/21 09/03/21 Range/Units 14:15 14:15 WBC 15.39 H (4.8-10.8) K/uL RBC 5.27 (4.7-6.1) M/uL Hgb 15.9 (14.0-18.0) g/dL Hct 45.2 (42-52) % MCV 85.8 (80-100) fL MCH 30.2 (25-34) pg MCHC 35.2 (32-36) g/dL RDW Std Deviation 43.7 (36.4-46.3) fL RDW Coeff of [place] 14.0 (11.5-14.5) % Plt Count 207 (130-400) K/uL MPV 11.9 H (7.4-10.4) fL Immature Gran % (Auto) 0.2 % Neut % (Auto) 75.4 % Lymph % (Auto) 14.0 % [place] % (Auto) 8.3 % Eos % (Auto) 1.8 % Baso % (Auto) 0.3 % Neut # (Auto) 11.60 H (1.4-6.5) K/uL Lymph # (Auto) 2.16 (1.2-3.4) K/uL [place] # (Auto) 1.28 H (0.11-0.59) K/uL Eos # (Auto) 0.28 (0-0.5) K/uL Baso # (Auto) 0.04 (0-0.2) K/uL Immature Gran # (Auto) 0.03 H (0.00-0.02) K/uL Sodium 141 (136-145) mmol/L Potassium 4.1 (3.5-5.1) mmol/L Chloride 106 (98-107) mmol/L Carbon Dioxide 28 (21-32) mmol/L Anion Gap 7 (3-11) BUN 16 (6-23) mg/dl Creatinine 0.93 (0.6-1.4) mg/dl Est Cr Clr Drug Dosing 136.7 ml/min Est GFR ( Amer) 120.3 ml/min Est GFR (Non-Af Amer) 103.8 ml/min BUN/Creatinine Ratio 17.2 (10-20) Glucose 105 H (70-99(Fasting)) mg/dl Calcium 9.8 (8.5-10.1) mg/dl Administered Medications Discontinued Medications Sodium Chloride (Nss 1000ml) 1,000 mls @ 999 mls/hr IV .Q1H1M ROCK Stop: 09/03/21 14:56 Last Infusion: 09/03/21 15:12 Dose: 0 mls/hr Documented by: [id number] Admin: 09/03/21 14:20 Dose: 999 mls/hr Documented by: [id number] Clindamycin Phosphate (Cleocin/D5w) 900 mg in 50 mls @ 100 mls/hr IV NOW ONE Stop: 09/03/21 14:24 Last Infusion: 09/03/21 14:48 Dose: 0 mls/hr Documented by: [id number] Admin: 09/03/21 14:19 Dose: 100 mls/hr Documented by: [id number] Ioversol (Optiray 320 100ml) 93 ml IV ONCE ONE Stop: 09/03/21 15:53 Last Admin: 09/03/21 15:54 Dose: 93 ml Documented by: [id number] Imaging Data Attestation: I personally reviewed and interpreted this imaging study as follows: Radiologist's Impression: Face CT 09/03/21 13:[address] WITH CONTRAST CLINICAL HISTORY: LEFT LOWER JAW PAIN/FACIAL SWELLING COMPARISON STUDY: No previous studies for comparison. TECHNIQUE: Axial images through the facial bones were obtained following intravenous injection of 93 cc Optiray 320 IV. Sagittal and coronal reconstructions were viewed. Automated exposure control was utilized for the study. A dose lowering technique was utilized adhering to the principles of ALARA. FINDINGS: Visualized portions of the intracranial contents are unremarkable. Orbits are unremarkable. There is moderate ethmoid sinus mucosal thickening. Mastoid air cells are clear. Note is made of extensive inferior left facial inflammation with stranding and fluid. There is thickening of the left platysma. Infiltration adjacent to the left masseter muscle is noted. There may also be edema within the left masseter muscle. Note is made of a periapical abscess of the left first mandibular molar. There is an adjacent tiny 1.3 x 0.3 cm rim- enhancing fluid collection consistent with abscess overlying the anterior left hemimandible. There is also a periapical lucency of the left second mandibular molar. There is a cavity of the left first mandibular molar. No additional fluid collections are present. Mildly enlarged left cervical lymph nodes are likely reactive. Epiglottis is normal. Parotid and submandibular glands are unremarkable. There is no soft tissue gas. IMPRESSION: Extensive inflammation centered on the left hemimandible consistent with cellulitis. Involvement of the left masseter muscle and thickening of the left platysma. This likely originates from a periapical lucency of the left first mandibular molar. Tiny adjacent abscess, measuring 1.3 x 0.3 cm. ACT 112: Negative or not required by law. Electronically signed by: Nic Joiner M.D. 09/03/2021 4:22 PM Discharge Plan Visit Data Chief Complaint: Facial Injury/Pain Stated Complaint: SWOLLEN JAW,NECK PAIN ED Provider: Trev Bellamy ED Midlevel Provider: Harsh Aquino Discharge Problem: Facial cellulitis, Mandibular pain, Dental abscess Patient Disposition: Being Evaluated by Hospitalist Forms Stand Alone Forms: [facility] Prescriptions Prescriptions: No Action omeprazole 40 mg capsule,delayed release(DR/EC) 40 mg PO DAILY Qty: 90 RF: 3 metformin 500 mg tablet 500 mg PO BID Qty: 180 RF: 3 nortriptyline 75 mg capsule 75 mg PO DAILY Qty: 90 RF: 3 gabapentin 300 mg capsule 300 mg PO TID Qty: 270 RF: 3 celecoxib 100 mg capsule See Rx Instructions .ROUTE .COMPLEX Qty: 60 RF: 0 hydrocortisone-acetic acid 1-2 % drops See Rx Instructions .ROUTE .COMPLEX Qty: 10 RF: 1 Referrals Referrals: Dhaval Burrows III, CRNP [Primary Care Provider] -
[2021-09-03 14:45] LABS: BUN Creatinine Ratio 17.2 (10-20); Calcium 9.8 mg/dl (8.5-10.1); Creatinine Clr Calc Pharmacy 136.7 ml/min; Est GFR (African American) 120.3 ml/min; Est GFR (Non-African American) 103.8 ml/min; Potassium 4.1 mmol/L (3.5-5.1)
[2021-09-03 15:02] LABS: Basophils # (auto) 0.04 K/uL (0-0.2); Basophils % (auto) 0.3 %; Eosinophils # (auto) 0.28 K/uL (0-0.5); Eosinophils % (auto) 1.8 %; Hematocrit (blood only) 45.2 % (42-52); Hemoglobin 15.9 g/dL (14.0-18.0); Immature Granulocytes # (auto) 0.03 K/uL (0.00-0.02); Immature Granulocytes % (auto) 0.2 %; Lymphocytes # (auto) 2.16 K/uL (1.2-3.4); Mean Corpuscular Hemoglobin 30.2 pg (25-34); Mean Corpuscular Hgb Conc 35.2 g/dL (32-36); Mean Corpuscular Volume 85.8 fL (80-100); Mean Platelet Volume 11.9 fL (7.4-10.4); Monocytes # (auto) 1.28 K/uL (0.11-0.59); Monocytes % (auto) 8.3 %; Neutrophils % (auto) 75.4 %; Platelet Count 207 K/uL (130-400); RDW Standard Deviation 43.7 fL (36.4-46.3); Red Blood Count 5.27 M/uL (4.7-6.1); White Blood Count 15.39 K/uL (4.8-10.8)
[2021-09-03] MEDS ORDERED: OPTIRAY 320 100ml IV ONE (15:52)
--- NOTE | 2021-09-03 16:24 | CT Scan Report ---
FACIAL BONE CT WITH CONTRAST CLINICAL HISTORY: LEFT LOWER JAW PAIN/FACIAL SWELLING COMPARISON STUDY: No previous studies for comparison. TECHNIQUE: Axial images through the facial bones were obtained following intravenous injection of 93 cc Optiray 320 IV. Sagittal and coronal reconstructions were viewed. Automated exposure control was u tilized for the study. A dose lowering technique was utilized adhering to the principles of ALARA. FINDINGS: Visualized portions of the intracranial contents are unremarkable. Orbits are unremarkable. There is moderate ethmoid sinus mucosal thickening. Mastoid air cells are clear. Note is made of ext ensive inferior left facial inflammation with stranding and fluid. There is thickening of the left pl atysma. Infiltration adjacent to the left masseter muscle is noted. There may also be edema within th e left masseter muscle. Note is made of a periapical abscess of the left first mandibular molar. Ther e is an adjacent tiny 1.3 x 0.3 cm rim-enhancing fluid collection consistent with abscess overlying t he anterior left hemimandible. There is also a periapical lucency of the left second mandibular molar . There is a cavity of the left first mandibular molar. No additional fluid collections are present. Mildly enlarged left cervical lymph nodes are likely reactive. Epiglottis is normal. Parotid and subm andibular glands are unremarkable. There is no soft tissue gas. IMPRESSION: Extensive inflammation centered on the left hemimandible consistent with cellulitis. Involvement of t he left masseter muscle and thickening of the left platysma. This likely originates from a periapical lucency of the left first mandibular molar. Tiny adjacent abscess, measuring 1.3 x 0.3 cm. ACT 112: Negative or not required by law. Electronically signed by: Nic Joiner M.D. 09/03/2021 4:22 PM
[2021-09-03] MEDS ORDERED: MoRPHine SULFATE 4 MG/ML 1 ML CARP\\VIAL IV PRN (16:47)
[2021-09-03] MEDS ORDERED: ONDANSETRON INJ 2 MG/ML 2 ML VIAL IV STA (16:47)
[2021-09-03] MEDS ORDERED: MoRPHine SULFATE 10 MG/ML CARP/VIAL IV STA (16:47)
--- NOTE | 2021-09-03 17:08 | History & Physical Report ---
Date of Service September 03, 2021 Assessment & Plan (1) Facial cellulitis: Plan: Clindamycin 600mg Q8H ROCK (2) Dental abscess: Plan: Antibiotics as above Consult oromaxillofacial surgery - Dr Norman (3) Type 2 diabetes mellitus: Plan: HbA1C 5.6. Hold metformin. Novolog for correction factor only while here and NPO Plan: VTE prophylaxis - low risk Diet - NPO except ice chips and sips Disposition - observation status due to expected one midnight stay to med/surg Admission and Anticipated Discharge Date Admission Date: September 04, 2021 History of Present Illness Chief Complaint: Facial swelling Primary Care Provider: Dhaval Burrows, III, LATOYA Kyle Galvan is a 36 year old male who presents to the ER with left sided facial swelling that started today with tooth pain that started 2 days ago and getting increasing worse starting from his bottom left molar. Having difficulty swallowing but managing his own secretions. No difficulty breathing. No fever or chills. In the ER case was discussed with Dr Norman who recommended admission under medicine for IV antibiotics and he will see the patient tomorrow. Allergies Allergy/AdvReac Type Severity Reaction Status Date / Time cefaclor [From [facility]] Allergy Unknown Unknown Verified 08/16/21 09:44 Penicillins Allergy Unknown Unknown Verified 08/16/21 09:44 red dye Allergy Unknown VARIOUS Verified 08/16/21 09:44 Sulfa (Sulfonamide Allergy Unknown Unknown Verified 08/16/21 09:44 Antibiotics) "MOST ANTIBIOTICS" Allergy Unknown NOT Uncoded 08/16/21 09:44 SPECIFIED ARTIFICIAL RASPBERRY Allergy Unknown NOT Uncoded 08/16/21 09:44 SPECIFIED Home Medications Medication Instructions Recorded Confirmed Type gabapentin 300 mg capsule 300 mg PO TID #270 cap 10/10/20 08/16/21 Rx metformin 500 mg tablet 500 mg PO BID #180 tab 10/10/20 08/16/21 Rx nortriptyline 75 mg capsule 75 mg PO DAILY #90 cap 10/10/20 08/16/21 Rx omeprazole 40 mg capsule,delayed 40 mg PO DAILY #90 cap 10/10/20 08/16/21 Rx release hydrocortisone-acetic acid 1 %-2 % See Rx Instructions .ROUTE 03/01/21 08/16/21 Rx ear drops .COMPLEX #10 ml celecoxib 100 mg capsule See Rx Instructions .ROUTE 06/29/21 08/16/21 Rx .COMPLEX #60 cap Past Med/Surg History Medical History (Updated 09/03/21 @ 17:00 by Harsh Aquino) Anxiety Asthma (04/10/12) Chronic back pain (04/10/12) Chronic fungal otitis externa Essential hypertriglyceridemia Fibromyalgia Gastro-esophageal reflux disease without esophagitis Hematuria Pulmonary nodules Surgical History H/O foot surgery H/O tooth extraction Family History Unknown Diabetes Sister Type 2 diabetes mellitus Mother Type 2 diabetes mellitus Hypertension Hyperlipidemia Mother Type 2 diabetes mellitus Hyperlipidemia Hypertension Grandmother Type 2 diabetes mellitus Denies family history of Ovarian cancer Prostate cancer Myocardial infarction Breast cancer Colorectal cancer Social History Smoking Status: Never smoker Age Started Using Tobacco: 12; Age Quit Using Tobacco: 17; packs per day: 1; Years Smoked: 5; Cigarettes Per Day: 20; Second Hand Exposure: No; Hx Alcohol Use: No Hx Substance Use: No Preferred Language: Japanese Communication Ability: Effective Visual Impairment: No Limitations Hearing Ability: Normal Maintenance Mechanic Required: No Beliefs That Will Affect Care: None marital status: Single Current Living Situation: Family Current Living Situation Comment: Lives with sister current occupational status: employed current occupation: [employer] @ [employer] Other Information That Helps Us Care for You: No Feels Safe at Home: Yes Safety Concerns: Feels Safe At This Time Childhood Exposure to Second-Hand Smoke: Yes Diet Comment: keto caffeine: Yes during the past year weight has: decreased > 10 lbs Dental Care, Regularly: No Physical Activity Frequency: 5-6 Times per Week Seatbelt Use: always Sunscreen Use: No Assistive Devices: Glasses Review of Systems Review of Systems: All systems reviewed & are unremarkable except as noted in HPI & below Physical Exam Constitutional: WD/WN, vitals as above ENMT: Nose: + facial edema (left sided) and + facial tenderness (left sided under galvan area) Neck: trachea midline, no thyromegaly Respiratory: normal respiratory effort, lungs clear to auscultation no stridor Cardiovascular: RRR, no murmur, no edema Gastrointestinal (Abdomen): normal bowel sounds, soft, nontender, no hepatosplenomegaly Musculoskeletal: no cyanosis or clubbing, extremities motor strength 5/5 Results & Data Results & Data ([facility]) Vital Signs (Past 12 Hours) Vital Signs Temp Pulse Resp BP Pulse Ox 09/03/21 13:32 36.4 C L 80 18 141/89 H 97 Laboratory Results Abnormal lab results 09/03/21 09/03/21 Range/Units 14:15 14:15 WBC 15.39 H (4.8-10.8) K/uL MPV 11.9 H (7.4-10.4) fL Neut # (Auto) 11.60 H (1.4-6.5) K/uL [place] # (Auto) 1.28 H (0.11-0.59) K/uL Immature Gran # (Auto) 0.03 H (0.00-0.02) K/uL Glucose 105 H (70-99(Fasting)) mg/dl Diagnostic Findings FACIAL BONE CT WITH CONTRAST CLINICAL HISTORY: LEFT LOWER JAW PAIN/FACIAL SWELLING COMPARISON STUDY: No previous studies for comparison. TECHNIQUE: Axial images through the facial bones were obtained following intravenous injection of 93 cc Optiray 320 IV. Sagittal and coronal reconstructions were viewed. Automated exposure control was utilized for the study. A dose lowering technique was utilized adhering to the principles of ALARA. FINDINGS: Visualized portions of the intracranial contents are unremarkable. Orbits are unremarkable. There is moderate ethmoid sinus mucosal thickening. Mastoid air cells are clear. Note is made of extensive inferior left facial inflammation with stranding and fluid. There is thickening of the left platysma. Infiltration adjacent to the left masseter muscle is noted. There may also be edema within the left masseter muscle. Note is made of a periapical abscess of the left first mandibular molar. There is an adjacent tiny 1.3 x 0.3 cm rim- enhancing fluid collection consistent with abscess overlying the anterior left hemimandible. There is also a periapical lucency of the left second mandibular molar. There is a cavity of the left first mandibular molar. No additional fluid collections are present. Mildly enlarged left cervical lymph nodes are likely reactive. Epiglottis is normal. Parotid and submandibular glands are unremarkable. There is no soft tissue gas. IMPRESSION: Extensive inflammation centered on the left hemimandible consistent with monet lulitis. Involvement of the left masseter muscle and thickening of the left platysma. This likely originates from a periapical lucency of the left first mandibular molar. Tiny adjacent abscess, measuring 1.3 x 0.3 cm. Medications Administered ER Medications Given: NSS 1L bolus x2 Clindamycin 900mg IV Ondansetron 4mg IV Code Status & VTE Plan Code Status Full VTE Prophylaxis Plan VTE Prophylaxis will be ordered: No Reason for no VTE drug order: Treatment not indicated Reason for no VTE mechanical prophylaxis: Treatment not indicated PG Care Time/CCT Total # of Minutes Spent Total Time Spent with Patient: Total time spent is greater than 50% in coordination of care (as documented) at patient's floor/unit and/or counseling patient: Coding Level of Care Code INT OBSERVATION CARE 50M LVL 2 Diagnoses Facial cellulitis L03.211 Dental abscess K04.7 Type 2 diabetes mellitus E11.9
[2021-09-03] MEDS ORDERED: GLUCOSE 10 TABS/TUBE PO PRN (20:29)
[2021-09-03] MEDS ORDERED: CARBOHYDRATES FOR HYPOGLYCEMIA PO PRN (20:29)
[2021-09-03] MEDS ORDERED: DEXTROSE 50% 50 ML SYRINGE IV PRN (20:29)
[2021-09-03] MEDS ORDERED: GLUCOSE 40% GEL 15 GM TUBE PO PRN (20:29)
[2021-09-03] MEDS ORDERED: GLUCAGON FOR INJ 1 MG VIAL SQ PRN (20:29)
[2021-09-03] MEDS ORDERED: ONDANSETRON INJ 2 MG/ML 2 ML VIAL IV PRN (20:29)
[2021-09-03] MEDS: CLINDAMYCIN/D5W 600 MG/50 ML BAG IV SCH (21:34)
[2021-09-03] MEDS: INSULIN ASPART PER UNIT SC SCH (21:34)
[2021-09-03] MEDS: KETOROLAC TROMETHAMINE 15 MG/ML VIAL IV PRN (22:06)
[2021-09-03] MEDS: ACETAMINOPHEN 500 MG TAB PO SCH (22:07)
[2021-09-04] MEDS: CLINDAMYCIN/D5W 600 MG/50 ML BAG IV SCH ×3 (04:58→21:10)
[2021-09-04] MEDS: ACETAMINOPHEN 500 MG TAB PO SCH ×3 (04:59→21:11)
--- NOTE | 2021-09-04 08:31 | Oral/Maxillofacial Consult ---
Date of Consultation September 04, 2021 Assessment & Plan (1) Facial cellulitis: (2) Mandibular pain: (3) Dental abscess: (4) Type 2 diabetes mellitus: (5) Carious teeth: History of Present Illness Reason for Consultation: facial swelling left side Attending Physician: Sedrick Mccloud MD History of Present Illness Oral Maxillofacial Surgery Exam HISTORY OF PRESENT ILLNESS: Patient is a 36-year-old male with extensive past medical history including obesity, dyslipidemia, asthma, anxiety, fibromyalgia, type 2 diabetes, who presents the emergency department for evaluation of left lower jaw pain. Symptoms started with pain in the teeth and the left lower jaw on Friday, 2 days ago. The pain then began to radiate toward the neck and toward his head. They noticed some swelling in the left cheek today. He has been alternating Tylenol and ibuprofen for his symptoms. At rest, his pain is a 4/10, but if he tries to talk, the pain goes to a 9/10. No issues with teeth in this area that he is aware of, specifically fillings or cavities. There has been no drainage or discharge from the area, no foul tasting fluid in the mouth. He has been able to eat, mostly soft/liquid foods, it does hurt to chew. He has not contacted dentistry. He did call his primary care provider and they were unable to get him in so referred him to the emergency department. Present Complaint: Left lower jaw pain x2 days with facial swelling x1 day I have pain/swelling/drainage from my infected lower left back teeth Symptoms have been ongoing for a while and yesterday it got very bad and swollen so I acme to the hospital Oral Exam: Finding- facial and gingival swelling associated with the carious # 19 , tender gingival tissue with deep pocket formation.I and D and extraction (maybe others) is clinical indicated. Imaging: FACIAL BONE CT WITH CONTRAST CLINICAL HISTORY: LEFT LOWER JAW PAIN/FACIAL SWELLING FINDINGS: Visualized portions of the intracranial contents are unremarkable. Orbits are unremarkable. There is moderate ethmoid sinus mucosal thickening. Mastoid air cells are clear. Note is made of extensive inferior left facial inflammation with stranding and fluid. There is thickening of the left platysma. Infiltration adjacent to the left masseter muscle is noted. There may also be edema within the left masseter muscle. Note is made of a periapical abscess of the left first mandibular molar. There is an adjacent tiny 1.3 x 0.3 cm rim-enh ancing fluid collection consistent with abscess overlying the anterior left hemimandible. There is also a periapical lucency of the left second mandibular molar. There is a cavity of the left first mandibular molar. No additional fluid collections are present. Mildly enlarged left cervical lymph nodes are likely reactive. Epiglottis is normal. Parotid and submandibular glands are unremarkable. There is no soft tissue gas. IMPRESSION: Extensive inflammation centered on the left hemimandible consistent with cellulitis. Involvement of the left masseter muscle and thickening of the left platysma. This likely originates from a periapical lucency of the left first mandibular molar. Tiny adjacent abscess, measuring 1.3 x 0.3 cm. Soft tissue: floor of the mouth left side is swollen, Left submandibular area very swollen and tender tongue, hard/soft palate, posterior pharyngeal area all with in normal limits, no pathology or abnormal findings noted. Oral Care: Overall oral care is fair Occlusion: Class I TMJ exam: Very limited opening secondary to infection. Periodontal exam: Mild gingival tissue inflammation right side without evidence of periodontal pathology. Left area 17-22 very swollen and infected Head/Neck exam: Neck is supple, some imitation due to infection and pain but able to extend and flex neck w/o difficulty, The left submand. swelling is obvious no masses, no abnormalities, no airway issues, no evidence of sleep apnea. Treatment Plan: He is NPO, in a lot of pain with trismus. COVID -Neg Drainage is starting around the tooth # 19 Set up with general anesthesia in hospital due to complexity of the procedure for extraction # 19 and I&D left submandibular and floor of mouth/masseter area I reviewed the treatment plan and consent with the patient Understanding was expressed. Time was given for questions regarding the surgery, risks and post op care. Discussed alternative to treatment--procedure as planned, Do not do surgery # 19 is abscessed and the etiology of this acute reaction removal is indicated and medically necessary. Risks discussed: Bleeding,Pain,swelling,infection, dry socket, delayed healing, nerve injury to face,lips,tongue,chin area which could be permanent (rare). TMJ, jaw stiffness, change in bite (rare), ear pain (referred). Sinus problems like fistula or infection. Need to leave a small root fragment in place to avoid injury to nerve or sinus. Relationship of wisdom teeth to nerve/sinus and risk of jaw fracture. Home care reviewed: tooth brushing, rinsing, follow up care with Dr Norman. diet=[id number] dental. Discussed activity level, driving/work while on Rx pain Meds. Surgery to be set up [facility] TODAY for I&D with extraction # 19 Allergies Allergy/AdvReac Type Severity Reaction Status Date / Time cefaclor [From Ceclor] Allergy Unknown Unknown Verified 08/16/21 09:44 Penicillins Allergy Unknown Unknown Verified 08/16/21 09:44 red dye Allergy Unknown VARIOUS Verified 08/16/21 09:44 Sulfa (Sulfonamide Allergy Unknown Unknown Verified 08/16/21 09:44 Antibiotics) "MOST ANTIBIOTICS" Allergy Unknown NOT Uncoded 08/16/21 09:44 SPECIFIED ARTIFICIAL RASPBERRY Allergy Unknown NOT Uncoded 08/16/21 09:44 SPECIFIED Home Medications Medication Instructions Recorded Confirmed Type gabapentin 300 mg capsule 300 mg PO TID #270 cap 10/10/20 08/16/21 Rx metformin 500 mg tablet 500 mg PO BID #180 tab 10/10/20 08/16/21 Rx nortriptyline 75 mg capsule 75 mg PO DAILY #90 cap 10/10/20 08/16/21 Rx omeprazole 40 mg capsule,delayed 40 mg PO DAILY #90 cap 10/10/20 08/16/21 Rx release hydrocortisone-acetic acid 1 %-2 % See Rx Instructions .ROUTE 03/01/21 08/16/21 Rx ear drops .COMPLEX #10 ml celecoxib 100 mg capsule See Rx Instructions .ROUTE 06/29/21 08/16/21 Rx .COMPLEX #60 cap Patient History Medical History (Updated 09/04/21 @ 08:37 by Edwar Norman DMD) Anxiety Asthma (04/10/12) Chronic back pain (04/10/12) Chronic fungal otitis externa Essential hypertriglyceridemia Fibromyalgia Gastro-esophageal reflux disease without esophagitis Hematuria Pulmonary nodules Surgical History H/O foot surgery H/O tooth extraction Family History Unknown Diabetes Sister Type 2 diabetes mellitus Mother Type 2 diabetes mellitus Hypertension Hyperlipidemia Mother Type 2 diabetes mellitus Hyperlipidemia Hypertension Grandmother Type 2 diabetes mellitus Denies family history of Ovarian cancer Prostate cancer Myocardial infarction Breast cancer Colorectal cancer Social History Smoking Status: Never smoker Age Started Using Tobacco: 12; Age Quit Using Tobacco: 17; packs per day: 1; Years Smoked: 5; Cigarettes Per Day: 20; Second Hand Exposure: No; Hx Alcohol Use: No Hx Substance Use: No Preferred Language: Macedonian Communication Ability: Effective Visual Impairment: No Limitations Hearing Ability: Normal Sky Line Yarder Required: No Beliefs That Will Affect Care: None marital status: Single Current Living Situation: Family Current Living Situation Comment: Lives with sister current occupational status: employed current occupation: [employer] Other Information That Helps Us Care for You: No Feels Safe at Home: Yes Safety Concerns: Feels Safe At This Time Childhood Exposure to Second-Hand Smoke: Yes Diet Comment: keto caffeine: Yes during the past year weight has: decreased > 10 lbs Dental Care, Regularly: No Physical Activity Frequency: 5-6 Times per Week Seatbelt Use: always Sunscreen Use: No Assistive Devices: Glasses Results & Data ([facility]) Vital Signs (Past 12 Hours) Vital Signs Temp Pulse Resp BP Pulse Ox 09/04/21 07:33 37.1 C 73 16 126/73 97 09/03/21 22:06 37.3 C 103 H 17 161/83 H 97 09/03/21 20:25 36.9 C 95 H 17 158/89 H 98 PG Care Time/CCT Total # of Minutes Spent Total Time Spent with Patient: Total time spent is greater than 50% in coordination of care (as documented) at patient's floor/unit and/or counseling patient: Coding Level of Care Code 61466 Office/OBS Consult Lvl 3 Diagnoses Facial cellulitis L03.211 Mandibular pain R68.84 Dental abscess K04.7 Type 2 diabetes mellitus E11.9 Carious teeth K02.9
[2021-09-04 09:05] LABS: Basophils # (auto) 0.04 K/uL (0-0.2); Basophils % (auto) 0.3 %; Eosinophils # (auto) 0.22 K/uL (0-0.5); Eosinophils % (auto) 1.5 %; Hematocrit (blood only) 43.3 % (42-52); Hemoglobin 15.1 g/dL (14.0-18.0); Immature Granulocytes # (auto) 0.05 K/uL (0.00-0.02); Immature Granulocytes % (auto) 0.3 %; Lymphocytes # (auto) 3.15 K/uL (1.2-3.4); Lymphocytes % (auto) 21.2 %; Mean Corpuscular Hemoglobin 30.3 pg (25-34); Mean Corpuscular Volume 86.8 fL (80-100); Mean Platelet Volume 11.3 fL (7.4-10.4); Monocytes # (auto) 1.22 K/uL (0.11-0.59); Monocytes % (auto) 8.2 %; Neutrophils # (auto) 10.17 K/uL (1.4-6.5); Neutrophils % (auto) 68.5 %; Platelet Count 206 K/uL (130-400); RDW Standard Deviation 44.6 fL (36.4-46.3); Red Blood Count 4.99 M/uL (4.7-6.1); White Blood Count 14.85 K/uL (4.8-10.8)
[2021-09-04 09:19] LABS: Mean Corpuscular Hgb Conc 34.9 g/dL (32-36)
[2021-09-04] MEDS: INSULIN ASPART PER UNIT SC SCH ×4 (09:26→21:10)
--- NOTE | 2021-09-04 09:45 | Anesthesiology Consultation ---
Date of Service September 04, 2021 Assessment & Plan (1) Encounter for pre-operative examination: Chart Review Chart Review: Acceptable Risk for Surgery History Surgery Operation Date: 09/04/21 10:10 Proposed Procedures p Left Facial Incision and Drainage - Edwar Norman DMD s Extraction 19 - Edwar Norman DMD Height/Weight Height: 5 ft 8 in Weight: 121 kg Allergies Allergy/AdvReac Type Severity Reaction Status Date / Time cefaclor [From Ceclor] Allergy Unknown Unknown Verified 08/16/21 09:44 Penicillins Allergy Unknown Unknown Verified 08/16/21 09:44 red dye Allergy Unknown VARIOUS Verified 08/16/21 09:44 Sulfa (Sulfonamide Allergy Unknown Unknown Verified 08/16/21 09:44 Antibiotics) "MOST ANTIBIOTICS" Allergy Unknown NOT Uncoded 08/16/21 09:44 SPECIFIED ARTIFICIAL RASPBERRY Allergy Unknown NOT Uncoded 08/16/21 09:44 SPECIFIED Medications Home Medications Medication Instructions Recorded Confirmed Last Taken gabapentin 300 mg capsule 300 mg PO TID #270 cap 10/10/20 08/16/21 Unknown metformin 500 mg tablet 500 mg PO BID #180 tab 10/10/20 08/16/21 Unknown nortriptyline 75 mg capsule 75 mg PO DAILY #90 cap 10/10/20 08/16/21 Unknown omeprazole 40 mg capsule,delayed 40 mg PO DAILY #90 cap 10/10/20 08/16/21 Unknown release hydrocortisone-acetic acid 1 %-2 % See Rx Instructions .ROUTE 03/01/21 08/16/21 Unknown ear drops .COMPLEX #10 ml celecoxib 100 mg capsule See Rx Instructions .ROUTE 06/29/21 08/16/21 Unknown .COMPLEX #60 cap Active Medications Generic Name Dose Route Start Last Admin Trade Name Ryan PRN Reason Stop Dose Admin Acetaminophen 1,000 mg 09/03/21 22:00 09/04/21 04:59 Acetaminophen 500 Mg Tab PO 10/03/21 21:59 1,000 mg Q8H ROCK Administration Clindamycin Phosphate 600 mg in 50 mls @ 100 mls/hr 09/03/21 22:00 09/04/21 05:28 Cleocin/D5w IV 09/13/21 21:59 Infused Q8H ROCK Infusion Insulin Aspart 0 units 09/03/21 21:00 09/04/21 09:26 Insulin Aspart Per Unit SC 10/03/21 20:59 Not Given ACHS ROCK Ketorolac Tromethamine 15 mg 09/03/21 21:33 09/03/21 22:06 Ketorolac Tromethamine 15 Mg/Ml Vial IV 09/08/21 21:32 15 mg Q6H PRN Administration Pain Past Medical History Medical History (Updated 09/04/21 @ 09:45 by Vcitoriano Chaudhry MD) Anxiety Asthma (04/10/12) Chronic back pain (04/10/12) Chronic fungal otitis externa Essential hypertriglyceridemia Fibromyalgia Gastro-esophageal reflux disease without esophagitis Hematuria Pulmonary nodules Past Family History Family History Unknown Diabetes Sister Type 2 diabetes mellitus Mother Type 2 diabetes mellitus Hypertension Hyperlipidemia Mother Type 2 diabetes mellitus Hyperlipidemia Hypertension Grandmother Type 2 diabetes mellitus Denies family history of Ovarian cancer Prostate cancer Myocardial infarction Breast cancer Colorectal cancer Past Surgical History Surgical History H/O foot surgery H/O tooth extraction Social History Smoking Status: Never smoker tobacco type: cigarettes Smoking cigarettes per day: 20 Hx Alcohol Use: No Hx Substance Use: No Physical Exam Vital Signs Last Vital Signs Temp 37.1 C 09/04/21 07:33 Pulse 73 09/04/21 07:33 Resp 16 09/04/21 07:33 BP 126/73 09/04/21 07:33 Pulse Ox 97 09/04/21 07:33 Testing Laboratory Results 09/04/21 08:49 09/03/21 14:15 09/04/21 07:54 POC Glucose 95
[2021-09-04] MEDS ORDERED: ONDANSETRON INJ 2 MG/ML 2 ML VIAL IV PRN (10:58)
[2021-09-04] MEDS ORDERED: fentaNYL citrate 100 MCG/2 ML VIAL IV PRN (10:58)
[2021-09-04] MEDS ORDERED: KETOROLAC 30 MG/ML VIAL IV PRN (10:58)
[2021-09-04] MEDS ORDERED: ATROPINE SULFATE 0.1 MG/ML 10ML SYR IV PRN (10:58)
[2021-09-04] MEDS ORDERED: LIDOCAINE 2% 2 ML VIAL/AMP(20MG/ML) INFIL ONE (11:07)
[2021-09-04] MEDS ORDERED: PROPOFOL IV EMULSION 10 MG/ML 20 ML VIAL IV ONE (11:07)
[2021-09-04] MEDS ORDERED: MIDAZOLAM HCL 1 MG/ML 2ML VIAL ONE (11:07)
[2021-09-04] MEDS ORDERED: fentaNYL citrate 100 MCG/2 ML VIAL ONE (11:07)
[2021-09-04] MEDS ORDERED: ROCURONIUM BROMIDE 10 MG/ML 5 ML VIAL IV ONE (11:07)
[2021-09-04] MEDS ORDERED: SUCCINYLCHOLINE CHLORIDE 20 MG/ML 10 ML VIAL IV ONE (11:07)
[2021-09-04] MEDS ORDERED: LARYING-O-JET KIT (LTA) ONE (11:07)
--- NOTE | 2021-09-04 11:39 | History & Physical Bridge Note ---
Date of Service September 04, 2021 History & Physical Bridge Note I have examined the patient, reviewed the History & Physical and in the interval since the performance of the History & Physical I have noted the following changes of clinical significance: no changes noted OK for I&D with extraction # 19
[2021-09-04] MEDS ORDERED: BUPIVACAINE/EPINEPHRINE 0.5% 1:200,000 1.8 ML CARP ONE (11:42)
[2021-09-04] MEDS ORDERED: TRIAMCINOLONE ACET 0.1% OINT 15 GM TUBE ONE (11:42)
[2021-09-04] MEDS ORDERED: CHLORHEXIDINE GLUCONATE 0.12% 480 ML ONE (11:43)
--- NOTE | 2021-09-04 12:21 | Hospitalist Progress Note ---
Date of Service September 04, 2021 Assessment & Plan (1) Facial cellulitis: Plan: - Clindamycin 600mg Q8H ROCK - Swelling slowly improving - Mild improvement in wbc count, no fevers (2) Dental abscess: Plan: - Antibiotics as above - Consulted oromaxillofacial surgery - Dr Norman, for I&D and extraction today - Pain control - Can order diet post procedure (3) Type 2 diabetes mellitus: Plan: - HbA1C 5.6. Hold metformin. - Novolog for correction factor only while here and NPO Plan: anticipate home tomorrow with continued course of abx and f/u with [facility]FS Plan to be d/w Dr. Mccloud Admission and Anticipated Discharge Date Admission Date: September 03, 2021 Subjective Patient was seen on rounds this morning. He reports swelling in his face has i mproved since yesterday and pain is adequately controlled. He denies fever/chills. He is for OR today with Dr. Norman for I&D and tooth extraction. Review of Systems Review of Systems: All systems reviewed and are unremarkable except as noted in HPI and below. Denies fever, chills, fatigue, headache, nasal congestion, sore throat, cough, chest pain, shortness of breath, palpitations, orthopnea, PND, abdominal pain, n/v/d, constipation, dysuria, hematuria, frequency, back pain, joint pain or swelling, easy bruising or bleeding, skin lesions or rashes. Physical Exam Physical Exam: GENERAL: 36 yo Well-developed, well-nourished WM. NAD. LUNGS: Clear to auscultation bilaterally. No W/R/R. CARDIOVASCULAR: Regular rate and rhythm. No M/G/R. No JVD. ABDOMEN: Soft, non-tender and non-distended. BS normoactive x 4 quad. EXTREMITIES: No edema. Non-tender. Peripheral pulses +2/4. NEUROLOGIC: A&O x3. PSYCHIATRIC: Cooperative. Appropriate mood and affect. SKIN: Warm, dry, intact. No rashes or lesions. Results & Data Results & Data ([facility]) Vital Signs (Past 12 Hours) Vital Signs Temp Pulse Resp BP Pulse Ox 09/04/21 10:38 36.6 C 96 H 18 141/65 H 97 09/04/21 07:33 37.1 C 73 16 126/73 97 Laboratory Results 09/04/21 08:49 06/27/22 14:15 PG Care Time/CCT Total # of Minutes Spent Total Time Spent with Patient: Total time spent is greater than 50% in coordination of care (as documented) at patient's floor/unit and/or counseling patient: Coding Level of Care Code 62110 Subseq Obs Care Lvl 2 Diagnoses Facial cellulitis L03.211 Dental abscess K04.7 Type 2 diabetes mellitus E11.9
--- NOTE | 2021-09-04 13:09 | Operative Report ---
PG Post Operative Report Pre & Post Diagnosis Operation Date: 09/04/21 10:10 Pre-Op Diagnosis: (1) Facial cellulitis: (2) Mandibular pain: (3) Dental abscess: (4) Type 2 diabetes mellitus: (5) Carious teeth: Post-Op Diagnosis: (1) Facial cellulitis: (2) Mandibular pain: (3) Dental abscess: (4) Type 2 diabetes mellitus: (5) Carious teeth: I identified the patient and participated in the time-out.: Yes Procedure Operation Date: 09/04/21 10:10 Actual Procedures p Left Facial Incision and Drainage(Left) - Edwar Norman DMD s Extraction 19(Not Applicable) - Edwar Norman DMD Surgeon Edwar Norman DMD Vocational Ed Instructor none Estimated Blood Loss 5 Findings Consistent with Post-Op Diagnosis significant intraoral swelling from infected # 19 The swelling involved the subperiosteal space,mandibular space and the submandibular space. Fluids significant intraoral swelling from infected # 19 Specimens L&D =pus Drains none Complications none Indications significant intraoral swelling from infected # 19 Description of Procedure Actual Procedures p Incision and Drainage Submandibular Abscess; Removal of Tooth #19 (Not Applicable) - Edwar Norman DMD CPT 45706 D7210 # 19 Once cleared for surgery general anesthesia was achieved, the eyes were protected by the anesthesia dept criteria.. A time out was take for patient ID, antibiotics, equipment and position verific ation once all agreed the procedure began. Local anesthesia was given into each area using Marcaine with a vasoconstrictor ( 1.8 ml per site). A throat pack was placed after the oral cavity was irrigated with saline. Once a surgical level of anesthesia was obtained and the local anesthesia was given time for the blocks the surgery was started. I turned my attention to the infected left side Actual Procedures p Incision and Drainage Submandibular Abscess; Removal of Tooth #28(Not Applicable) - Edwar Norman DMD Incision and Drainage CPT 31637 left submandibular and graphotype operator spaces Using a 15 blade an incision was made FROM AREA # 17-22. THE FLAP WAS ELEVATED-upon elevation a lot of pus extruded from the site. This drainage was cultured for anaerobic and aerobic bacteria. A curved hemostat was carefully placed into the infected space along the LATERAL side of the lower jaw and into the submandibular and posterior into the man dibular (graphotype operator) space. Some further drainage was now allowed to escape. I palpated the cheek and submental area and no further drainage was expressed. The area was irrigated with at least 200 ml of NS solution. There was such good drainage and given that the tooth socket will allow continuation of the drainage w/o a pen vazquez drain. I now turned my attention to remove the # 19 tooth. Lower # 19 Surgical extraction D7210 The full thick Muco-periosteal flap was made on the facial aspect from # 22-17. The flap was reflected to expose the the subperiosteal space the bone adjacent to # 19. The dental drill was used to remove bone, the tooth was sectioned and removed with a 301 elevator and dental forceps . The mental nerve was intact, there was a large amount of granulation tissue on the apex which was curetted and some more pus that was expressed. The nerve was intact, there was no bleeding. The bone was trimmed, smoothed and the flap was closed with a few 2-0 chromic sutures. Given the excellent drainage an extraoral I&D was not needed. I inspected the sites to insure all bleeding was controlled. I removed the throat pack and suctioned the throat. A gauze pressure dressings was placed. All instrument and sponge count was correct. the patient was allowed to awake from the anesthesia. Once full awake the anesthesia tube was removed and the patient was taken to the recovery room with all vital sign stable. The patient tolerated the surgery very well. I will follow the patient in my office, Rx and instructions will be given upon discharge. I attest to the content of the Intraoperative Record and any orders documented therein. Any exceptions are noted below.
--- NOTE | 2021-09-04 13:38 | Anesthesiology Progress Note ---
Date of Service September 04, 2021 Anesthesia Post Procedure Vital Signs Vital Signs: Temp Pulse Pulse Pulse Resp BP Pulse Ox 09/04/21 13:35 98 H 13 159/99 H 100 09/04/21 13:25 97 H 13 193/95 H 100 09/04/21 13:15 101 H 12 165/97 H 98 09/04/21 13:05 37.0 C 109 H 22 172/82 H 93 09/04/21 10:38 36.6 C 96 H 18 141/65 H 97 09/04/21 07:33 37.1 C 73 16 126/73 97 09/03/21 22:06 37.3 C 103 H 17 161/83 H 97 09/03/21 20:25 36.9 C 95 H 17 158/89 H 98 09/03/21 17:14 88 18 158/79 H 96 Pain Intensity Face: Pain Intensity: 1 Transfer of Care Handoff Completed per policy Notes Mental Status: alert / awake / arousable Patient Amnestic to Procedure: Yes Nausea / Vomiting: adequately controlled Pain: adequately controlled Airway Patency, RR, SpO2: stable & adequate BP & HR: stable & adequate Hydration State: stable & adequate Anesthetic Complications: no major complications apparent
[2021-09-04] MEDS: LACTATED RINGER'S 1,000 ML IV SCH ×2 (14:42→18:52)
[2021-09-04] MEDS: KETOROLAC TROMETHAMINE 15 MG/ML VIAL IV PRN (18:54)
[2021-09-05] MEDS: LACTATED RINGER'S 1,000 ML IV SCH ×2 (00:21→08:43)
[2021-09-05] MEDS: CLINDAMYCIN/D5W 600 MG/50 ML BAG IV SCH (05:47)
[2021-09-05] MEDS: ACETAMINOPHEN 500 MG TAB PO SCH (05:47)
[2021-09-05 06:25] LABS: Basophils # (auto) 0.05 K/uL (0-0.2); Basophils % (auto) 0.4 %; Eosinophils # (auto) 0.24 K/uL (0-0.5); Hematocrit (blood only) 39.3 % (42-52); Hemoglobin 13.6 g/dL (14.0-18.0); Immature Granulocytes # (auto) 0.02 K/uL (0.00-0.02); Immature Granulocytes % (auto) 0.2 %; Lymphocytes # (auto) 2.46 K/uL (1.2-3.4); Lymphocytes % (auto) 20.6 %; Mean Corpuscular Hemoglobin 30.2 pg (25-34); Mean Corpuscular Hgb Conc 34.6 g/dL (32-36); Mean Corpuscular Volume 87.3 fL (80-100); Mean Platelet Volume 11.4 fL (7.4-10.4); Monocytes # (auto) 1.12 K/uL (0.11-0.59); Monocytes % (auto) 9.4 %; Neutrophils # (auto) 8.08 K/uL (1.4-6.5); Neutrophils % (auto) 67.4 %; Platelet Count 176 K/uL (130-400); RDW Coefficient of Variation 13.7 % (11.5-14.5); White Blood Count 11.97 K/uL (4.8-10.8)
[2021-09-05 06:40] LABS: BUN Creatinine Ratio 14.4 (10-20); Calcium 8.6 mg/dl (8.5-10.1); Creatinine Clr Calc Pharmacy 140.8 ml/min; Est GFR (African American) 125.1 ml/min; Potassium 3.5 mmol/L (3.5-5.1)
[2021-09-05] MEDS: INSULIN ASPART PER UNIT SC SCH ×2 (08:28→12:45)
--- NOTE | 2021-09-05 10:19 | Oral/Maxillofacial Progress Nt ---
Date of Service September 05, 2021 Assessment & Plan Admission and Anticipated Discharge Date Admission Date: September 03, 2021 Subjective Post Op infection evaluation at 24 hours The infected area is now much softer and less swollen he is healing very well at this time. No drainage is noted. Cultures were reviewed- but results still pending at of 10:25 September 05 2021. Infection has responded very well to the antibiotics/extraction # 19 and the I and D. I requested that the patient continue with massage, heat and oral care. At this time the infection is under good control and his responded well to treatment. OK for discharge on oral antibiotics and pain medications. I reviewed oral care instructions, oral hygiene and follow up with me in 10-14 days. Getting routine dental care was stressed. OK for discharge is OK by medicine. Results & Data ([facility]) Vital Signs (Past 12 Hours) Vital Signs Temp Pulse Resp BP BP Pulse Ox 09/05/21 07:39 36.8 C 83 16 120/74 95 09/05/21 03:03 36.6 C 79 18 145/78 H 95 09/04/21 22:50 36.8 C 86 18 124/72 94 PG Care Time/CCT Total # of Minutes Spent Total Time Spent with Patient: Total time spent is greater than 50% in coordination of care (as documented) at patient's floor/unit and/or counseling patient: Coding Level of Care Code None
--- NOTE | 2021-09-05 10:55 | Discharge Summary ---
Date of Service September 05, 2021 Admission HPI Per Admitting Provider Kyle Galvan is a 36 year old male who presents to the ER with left sided facial swelling that started today with tooth pain that started 2 days ago and getting increasing worse starting from his bottom left molar. Having difficulty swallowing but managing his own secretions. No difficulty breathing. No fever or chills. In the ER case was discussed with Dr Norman who recommended admission under medicine for IV antibiotics and he will see the patient tomorrow. Principal Diagnosis Dental abscess with associated facial cellulitis Discharge Exam GENERAL: 36 yo Well-developed, well-nourished WM. NAD. ENT: Swelling of left jaw area has improved compared to yesterday. Some purulent material noted inside gum line. LUNGS: Clear to auscultation bilaterally. No W/R/R. CARDIOVASCULAR: Regular rate and rhythm. No M/G/R. No JVD. ABDOMEN: Soft, non-tender and non-distended. BS normoactive x 4 quad. EXTREMITIES: No edema. Non-tender. Peripheral pulses +2/4. NEUROLOGIC: A&O x3. PSYCHIATRIC: Cooperative. Appropriate mood and affect. SKIN: Warm, dry, intact. No rashes or lesions. Discharge Data Allergies Allergy/AdvReac Type Severity Reaction Status Date / Time cefaclor [From [facility]] Allergy Unknown Unknown Verified 08/16/21 09:44 Penicillins Allergy Unknown Unknown Verified 08/16/21 09:44 red dye Allergy Unknown VARIOUS Verified 08/16/21 09:44 Sulfa (Sulfonamide Allergy Unknown Unknown Verified 08/16/21 09:44 Antibiotics) "MOST ANTIBIOTICS" Allergy Unknown NOT Uncoded 08/16/21 09:44 SPECIFIED ARTIFICIAL RASPBERRY Allergy Unknown NOT Uncoded 08/16/21 09:44 SPECIFIED Consultations 09/03/21 17:03 ED Decision to Admit Stat 09/03/21 20:29 Consult Oromaxillofacial Surgery Routine Procedures Performed Operation Date: 09/04/21 10:10 Actual Procedures p Left Facial Incision and Drainage(Left) - Edwar Norman DMD s Extraction 19(Not Applicable) - Edwar Norman DMD Ordered Studies Face CT 09/03/21 13:[address] WITH CONTRAST CLINICAL HISTORY: LEFT LOWER JAW PAIN/FACIAL SWELLING COMPARISON STUDY: No previous studies for comparison. TECHNIQUE: Axial images through the facial bones were obtained following intravenous injection of 93 cc Optiray 320 IV. Sagittal and coronal reconstructions were viewed. Automated exposure control was utilized for the study. A dose lowering technique was utilized adhering to the principles of ALARA. FINDINGS: Visualized portions of the intracranial contents are unremarkable. Orbits are unremarkable. There is moderate ethmoid sinus mucosal thickening. Mastoid air cells are clear. Note is made of extensive inferior left facial inflammation with stranding and fluid. There is thickening of the left platysma. Infiltration adjacent to the left masseter muscle is noted. There may also be ed franko within the left masseter muscle. Note is made of a periapical abscess of the left first mandibular molar. There is an adjacent tiny 1.3 x 0.3 cm rim- enhancing fluid collection consistent with abscess overlying the anterior left hemimandible. There is also a periapical lucency of the left second mandibular molar. There is a cavity of the left first mandibular molar. No additional fluid collections are present. Mildly enlarged left cervical lymph nodes are likely reactive. Epiglottis is normal. Parotid and submandibular glands are unremarkable. There is no soft tissue gas. IMPRESSION: Extensive inflammation centered on the left hemimandible consistent with cellulitis. Involvement of the left masseter muscle and thickening of the left platysma. This likely originates from a periapical lucency of the left first mandibular molar. Tiny adjacent abscess, measuring 1.3 x 0.3 cm. ACT 112: Negative or not required by law. Electronically signed by: Nic Joiner M.D. 09/03/2021 4:22 PM Hospital Course (1) Facial cellulitis: - Clindamycin 600mg Q8H ROCK - Swelling greatly improved - Improved nearly normalized wbc count, afebrile (2) Dental abscess: - Antibiotics and s/p I&D and extraction by Dr. Norman on 09/04 - Pain control - Follow up with Dr. Norman as instructed (3) Type 2 diabetes mellitus: - HbA1C 5.6. Metformin held during admission. - Novolog for correction factor only while hospitalized - Can resume Metformin upon d/c D/C home today on course of antibiotics as written by Dr. Norman. Follow up with him as instructed. Plan has been d/w Dr. Workman. Total Time Total Time Spent Total Time Spent (In Minutes): <30 minutes Discharge Plan Discharge Items Patient Disposition: Home - Self-Care Reason For Visit: DEN CARYN ABSCESS AND FACIAL CELLULITIS Discharge Diagnosis: s/p facial infection Condition on Discharge: Good Activity: Resume your previous activity Lifting: Gradually increase as tolerated Bathing: No limitations Exercise/Sports: Gradually increase as tolerated Driving/Machine Use: Resume 1 day after discharge Weightbearing: Full weightbearing Non-emergency contact: Primary Care Provider and Surgeon Call non-emergency contact if: your temperature is above 101.5, your wound has increased redness, your wound has increased drainage and your wound pain has increased Follow-up/Referrals: Dhaval Burrows III, CRNP [Primary Care Provider] - 09/12/21 9:20 am Edwar Norman DMD [Physician] - 09/13/21 4:15 pm Diet: Full liquid and Clear liquid Diet Texture: Easy to Chew Addtl Attending Provider Instructions: ADDITIONAL ACTIVITY RECOMMENDATIONS: * [place] teeth after every meal. It is very important to keep your mouth clean to prevent infection. * Starting tonight rinse with the Peridex as directed then 2 x a day * it is very important to keep well hydrated, this prevents fever and possible dry socket pain SPECIAL CARE INSTRUCTIONS: *It is not uncommon that between day 2-4 that your swelling will be at its worst this is very normal, do not be alarmed. * Best to apply heat (hot water bottle or heating pad)with massage of your face for the next two days, as often as possible. * Tomorrow start rinsing your mouth with 1/2 teaspoon salt in 8 ounces warm water. This rinse should be used every 4-6 hours. * You may experience slight nausea. To prevent this, never take your medication on an empty stomach. If nauseated, take small sips of hoa riley until you feel better; then you may start on applesauce and toast. * Some swelling is common. It should gradually decrease within 4-5 days. * A certain amount of bleeding is to be expected. It is often possible to control mild oozing by placing folded gauze over the area and biting down for 30 minutes. If you are unable to control excessive bleeding, call Dr Norman at [phone] * You may experience some discomfort for a few days. If pain or swelling increases, Call Dr Norman * Return to the office for a follow up check up on: FridaySEPTEMBER 13 at 4:15 pm * office address--[address] [place], [place] [address]. phone # [phone] Pending Studies at Discharge: No Stand-Alone Forms: My [facility], Smoking Cessation Medications and DC Order Prescriptions: Continued omeprazole 40 mg capsule,delayed release(DR/EC) 40 mg PO DAILY Qty: 90 RF: 3 metformin 500 mg tablet 500 mg PO BID Qty: 180 RF: 3 nortriptyline 75 mg capsule 75 mg PO DAILY Qty: 90 RF: 3 gabapentin 300 mg capsule 300 mg PO TID Qty: 270 RF: 3 celecoxib 100 mg capsule See Rx Instructions .ROUTE .COMPLEX Qty: 60 RF: 0 clindamycin HCl 300 mg capsule 300 mg PO TID 7 Days Qty: 21 RF: 0 hydrocodone-acetaminophen 5-325 mg tablet 1 tab PO Q4H PRN (Reason: pain) Qty: 14 RF: 0 chlorhexidine gluconate [Peridex] 0.12 % mouthwash 15 ml mucous membrane BID Qty: 473 RF: 0 hydrocortisone-acetic acid 1-2 % drops See Rx Instructions .ROUTE .COMPLEX Qty: 10 RF: 1 Discharge Orders: Discharge Order (Routine); Ordered 09/05/21 Ordered By: Rox Saenz/Other Patient Handouts: ED Cellulitis, Facial Admission Data Admit Date/Time: 09/03/21 17:13 Attending Provider: Melchor Workman Admit Provider: Justin Parker Primary Care Provider: Dhaval Burrows III Other Providers: Justin Parker ; Edwar Norman Coding Level of Care Code 17286 OBS Care - Discharge Diagnoses Facial cellulitis L03.211 Dental abscess K04.7 Type 2 diabetes mellitus E11.9
== END 2021-09-05 14:34 | disposition home or self-care (01) ==
LOC: 3E 13:27 → ED 13:27 → SUATTDRO 17:13 → 3E 19:45